=== PATIENT | male | born 1985 | race Two or more races ===

== ENCOUNTER 2022-02-17 19:43 | Emergency (ER) | payer OTHER, SELFPAY ==
[2022-02-17] VITALS (10 sets, daily range): BP systolic 101–151; BP diastolic 72–126; PULSE 102–136; RESP 10–26; TEMP 35.9–36.9; O2SAT 96–100; BMI 31.6
--- NOTE | 2022-02-17 20:02 | ED.URI ---
HPI - URI/Sore Throat General Chief Complaint: General Medical <CARRIE Cardoza - Last Filed: 02/17/22 20:04> Stated Complaint: Just had tonsils removed/ pain/bleeding <CARRIE Cardoza - Last Filed: 02/17/22 20:04> Time Seen by Provider: 02/17/22 20:28 <CARRIE Cardoza - Last Filed: 02/17/22 20:04> Source: patient <Jake Ocampo MD - Last Filed: 02/18/22 00:23> Limitations: no limitations <Jake Ocampo MD - Last Filed: 02/18/22 00:23> History of Present Illness HPI Narrative: This is a 36-year-old male who had a tonsillectomy done at [facility] [place] 5 days ago. The patient had been doing well, eating only soft foods, but this afternoon around 03:00 o'clock began bleeding from his throat. He has been repeatedly bringing up blood. He denies any dizziness. He does feel like his heart is racing. He denies any fever, shortness of breath, cough, abdominal pain, nausea vomiting. <Jake Ocampo MD - Last Filed: 02/18/22 00:23> Related Data Allergies/Adverse Reactions: Allergies Allergy/AdvReac Type Severity Reaction Status Date / Time No Known Allergies Allergy Verified 02/17/22 20:02 <CARRIE Cardoza - Last Filed: 02/17/22 20:04> Review of Systems Review of Systems: As per HPI <Jake Ocampo MD - Last Filed: 02/18/22 00:23> FOR[facility]LY [facility] Social History Social History: Social History Advance Directives: No Advance Directives Information Provided: No <CARRIE Cardoza - Last Filed: 02/17/22 20:04> Physical Exam Vital Signs: Vital Signs: Last Vital Signs Temp 97.0 F 02/17/22 23:04 Pulse 104 H 02/17/22 23:04 Resp 15 02/17/22 23:04 BP 143/126 H 02/17/22 23:04 Pulse Ox 100 02/17/22 22:30 O2 Del Method 02/17/22 22:30 BMI result Body Mass Index 31.6 <CARRIE Cardoza - Last Filed: 02/17/22 20:04> Vital Signs: Last Vital Signs Temp 97.0 F 02/17/22 23:04 Pulse 104 H 02/17/22 23:04 Resp 15 02/17/22 23:04 BP 143/126 H 02/17/22 23:04 Pulse Ox 100 02/17/22 22:30 O2 Del Method 02/17/22 22:30 BMI result Body Mass Index 31.6 <Jake Ocampo MD - Last Filed: 02/18/22 00:23> Const: Other: PERRLA Conj [place] Mucous membranes moist Throat bleeding from pharynx on both sides, not brisk. Patient bringing up small amounts of bright red blood. Neck supple Lungs CTA Heart tachy RR no murmurs rubs or gallops Abd soft, non tender, non distended Extremities no pitting edema Neuro alert and oriented x 3, non focal Skin moderately pale, moist <Jake Ocampo MD - Last Filed: 02/18/22 00:23> Course Course Course Narrative: RME-20PM - 36yoM who is s/p tonsillectomy on Saturday presenting to the ER with complaints of a few hours of bleeding from the surgical site including clots. Therefore he came here for further evaluation treatment. He denies any other symptoms related to this. Plan: Will obtain basic labs. Patient will be evaluated in the ED. <CARRIE Cardoza - Last Filed: 02/17/22 20:04> Medications Administered Discontinued Medications Generic Name Dose Route Start Last Admin Trade Name Freq PRN Reason Stop Dose Admin Epinephrine 0.5 ml 02/17/22 20:40 02/17/22 22:03 Racepinephrine Hcl 0.5 Ml Vial.Neb INHALE 02/17/22 20:41 0.5 ml ONCE ONE Administration Sodium Chloride 1,000 mls @ 999 mls/hr 02/17/22 20:45 02/17/22 20:41 Ns IV 02/17/22 21:45 999 mls/hr .Q1H1M CARIN Administration Lorazepam 0.5 mg 02/17/22 23:03 02/17/22 23:20 Lorazepam 2 Mg/Ml Vial IVPUSH 02/17/22 23:04 0.5 mg ONCE ONE Administration Ondansetron HCl 4 mg 02/17/22 23:03 12/17/22 23:21 Ondansetron Hcl 4 Mg/2 Ml Vial IVPUSH 02/17/22 23:04 4 mg ONCE ONE Administration Tranexamic Acid 500 mg 02/17/22 20:36 02/17/22 21:36 Tranexamic Acid 1,000 Mg/10 Ml Vial INTRANASAL 02/17/22 20:37 500 mg ONCE ONE Administration <CARRIE Cardoza - Last Filed: 02/17/22 20:04> Medications Administered Discontinued Medications Generic Name Dose Route Start Last Admin Trade Name Pamela PRN Reason Stop Dose Admin Epinephrine 0.5 ml 02/17/22 20:40 02/17/22 22:03 Racepinephrine Hcl 0.5 Ml Vial.Neb INHALE 02/17/22 20:41 0.5 ml ONCE ONE Administration Sodium Chloride 1,000 mls @ 999 mls/hr 02/17/22 20:45 02/17/22 20:41 Ns IV 02/17/22 21:45 999 mls/hr .Q1H1M CARIN Administration Lorazepam 0.5 mg 02/17/22 23:03 02/17/22 23:20 Lorazepam 2 Mg/Ml Vial IVPUSH 02/17/22 23:04 0.5 mg ONCE ONE Administration Ondansetron HCl 4 mg 02/17/22 23:03 02/17/22 23:21 Ondansetron Hcl 4 Mg/2 Ml Vial IVPUSH 02/17/22 23:04 4 mg ONCE ONE Administration Tranexamic Acid 500 mg 02/17/22 20:36 02/17/22 21:36 Tranexamic Acid 1,000 Mg/10 Ml Vial INTRANASAL 02/17/22 20:37 500 mg ONCE ONE Administration <Jake Ocampo MD - Last Filed: 02/18/22 00:23> Medical Decision Making Medical Decision Making MDM Narrative: Patient with tonsillar bleeding 5 days status post tonsillectomy, moderately severe, with patient showing signs of early hemorrhagic shock. <Jake Ocampo MD - Last Filed: 02/18/22 00:23> Consult Healthcare Provider Initially called [facility] but they stated that they were closed and to try the hospital where the patient had the procedure. Ear Nose and Throat resident at [facility] was initially telephone, stated that the patient needed to be transferred to the nearest hospital with ENT. Dr. Redding, ENT at [facility], accepted the patient for transfer directly to the emergency department. The patient was initially bolused normal saline IV. He was started on TXA nebulizer 500 mg in 5 mL of normal saline. He was given racemic epi nebulizer. His bleeding did not seem to slow down. The patient repetitively brought up blood which he spat into vomit bag. He remained tachycardic at around 130. Was pale mildly diaphoretic. After a few hours a repeat H&H was ordered. The patient also wanted to use the bathroom and in some fashion was brought to the bathroom and had a syncopal episode. The patient was placed in a wheelchair where he proceeded to projectile vomit a large amount of red blood. Patient was placed back on a gurney and laid flat. He did come to. Blood transfusion was started, as his H&H has dropped about 25%. Patient was given Zofran 4 mg IV and lorazepam 0.5 mg IV. Transported initially been requested a LS, however the ALS crew which had been available needed to transport the severe trauma patient to [facility]. A BLS crew was available and was called in to transport this patient with the nurse assisting in the rig. Patient was transferred with blood hanging. Critical care time for this life-threatening illness exclusive of all other billable procedures was approximately 45 minutes including initial evaluation of the patient, ordering tests, x-ray interpretation, EKG interpretation, medical consultation, documentation, reevaluation. <Jake Ocampo MD - Last Filed: 02/18/22 00:23> Lab Data MDM Lab Attestation statement: I reviewed the patient's lab results. <Jake Ocampo MD - Last Filed: 02/18/22 00:23> Result Diagrams: : 02/17/22 22:32 02/17/22 20:13 <CARRIE Cardoza - Last Filed: 02/17/22 20:04> Labs: Lab Results 02/17/22 02/17/22 02/17/22 Range/Units 20:13 20:13 20:13 WBC 8.5 (4.8-10.8) X10*3/uL RBC 4.80 (4.60-5.80) X10*6/uL Hgb 13.8 L (14.0-18.0) g/dl Hct 41.6 L (42.0-52.0) % MCV 86.7 (80.0-98.0) fL MCH 28.8 (27.0-33.0) pg MCHC 33.2 (31.0-36.0) g/dl RDW 13.4 (11.0-16.0) % Plt Count 313 (160-400) X10*3/uL MPV 10.0 (9.4-12.4) fL Immature Gran % (Auto) 0.2 (0.0-0.4) % Neut % (Auto) 57.8 (45-73) % Lymph % (Auto) 32.5 (20-40) % Randolph % (Auto) 6.5 (2-11) % Eos % (Auto) 2.6 (0-4) % Baso % (Auto) 0.4 (0-2) % Lymph # (Auto) 2.8 (1.2-4.9) X10*3/uL Randolph # (Auto) 0.6 (0.1-1.2) X10*3/uL Eos # (Auto) 0.2 (0.0-0.4) X10*3/uL Baso # (Auto) 0.0 (0.0-0.2) X10*3/uL Abs Immat Gran (auto) 0.02 (0.00-0.03) X10*3/uL Absolute Neuts (auto) 4.9 (2.0-8.3) x10*3/uL Absolute Nucleated RBC 0.000 (0.0-0.012) X10*3/uL Nucleated RBC % (auto) 0.0 (0.0-0.2) /100WBC PT 12.2 (10.0-13.1) SEC INR 1.1 (0.9-1.1) Sodium 137 (135-145) mmol/L Potassium 3.9 (3.3-5.1) mmol/L Chloride 101 (96-108) mmol/L Carbon Dioxide 28 (22-29) mmol/L Anion Gap 12 (12-20) BUN 12 (9-16) mg/dL Creatinine 0.82 (0.5-1.4) mg/dL Estim Creat Clear Calc 145.8 Estimated GFR > 60 Random Glucose 156 H (60-115) mg/dL Calcium 9.0 (8.4-10.2) mg/dL Magnesium 2.1 (1.6-2.6) mg/dL Total Bilirubin 1.1 H (0.0-1.0) mg/dL AST 26 (5-37) U/L ALT 35 (0-40) U/L Alkaline Phosphatase 108 (39-117) U/L Total Protein 7.2 (6.5-8.0) g/dL Albumin 4.2 (3.5-5.0) g/dL Influenza Type A (PCR) (Negative) Influenza Type B (PCR) (Negative) RSV RNA Qual (PCR) (Negative) SARS-CoV-2 RNA (RT-PCR) (Negative) Blood Type Antibody Screen Crossmatch 02/17/22 02/17/22 02/17/22 Range/Units 20:23 20:23 22:32 WBC (4.8-10.8) X10*3/uL RBC (4.60-5.80) X10*6/uL Hgb 11.4 L (14.0-18.0) g/dl Hct 34.1 L (42.0-52.0) % MCV (80.0-98.0) fL MCH (27.0-33.0) pg MCHC (31.0-36.0) g/dl RDW (11.0-16.0) % Plt Count (160-400) X10*3/uL MPV (9.4-12.4) fL Immature Gran % (Auto) (0.0-0.4) % Neut % (Auto) (45-73) % Lymph % (Auto) (20-40) % Randolph % (Auto) (2-11) % Eos % (Auto) (0-4) % Baso % (Auto) (0-2) % Lymph # (Auto) (1.2-4.9) X10*3/uL Randolph # (Auto) (0.1-1.2) X10*3/uL Eos # (Auto) (0.0-0.4) X10*3/uL Baso # (Auto) (0.0-0.2) X10*3/uL Abs Immat Gran (auto) (0.00-0.03) X10*3/uL Absolute Neuts (auto) (2.0-8.3) x10*3/uL Absolute Nucleated RBC (0.0-0.012) X10*3/uL Nucleated RBC % (auto) (0.0-0.2) /100WBC PT (10.0-13.1) SEC INR (0.9-1.1) Sodium (135-145) mmol/L Potassium (3.3-5.1) mmol/L Chloride (96-108) mmol/L Carbon Dioxide (22-29) mmol/L Anion Gap (12-20) BUN (9-16) mg/dL Creatinine (0.5-1.4) mg/dL Estim Creat Clear Calc Estimated GFR Random Glucose (60-115) mg/dL Calcium (8.4-10.2) mg/dL Magnesium (1.6-2.6) mg/dL Total Bilirubin (0.0-1.0) mg/dL AST (5-37) U/L ALT (0-40) U/L Alkaline Phosphatase (39-117) U/L Total Protein (6.5-8.0) g/dL Albumin (3.5-5.0) g/dL Influenza Type A (PCR) NEGATIVE (Negative) Influenza Type B (PCR) NEGATIVE (Negative) RSV RNA Qual (PCR) NEGATIVE (Negative) SARS-CoV-2 RNA (RT-PCR) NEGATIVE (Negative) Blood Type O Positive Antibody Screen NEGATIVE Crossmatch See Detail <CARRIE Cardoza - Last Filed: 02/17/22 20:04> Lab Results 02/17/22 02/17/22 02/17/22 Range/Units 20:13 20:13 20:13 WBC 8.5 (4.8-10.8) X10*3/uL RBC 4.80 (4.60-5.80) X10*6/uL Hgb 13.8 L (14.0-18.0) g/dl Hct 41.6 L (42.0-52.0) % MCV 86.7 (80.0-98.0) fL MCH 28.8 (27.0-33.0) pg MCHC 33.2 (31.0-36.0) g/dl RDW 13.4 (11.0-16.0) % Plt Count 313 (160-400) X10*3/uL MPV 10.0 (9.4-12.4) fL Immature Gran % (Auto) 0.2 (0.0-0.4) % Neut % (Auto) 57.8 (45-73) % Lymph % (Auto) 32.5 (20-40) % Randolph % (Auto) 6.5 (2-11) % Eos % (Auto) 2.6 (0-4) % Baso % (Auto) 0.4 (0-2) % Lymph # (Auto) 2.8 (1.2-4.9) X10*3/uL Randolph # (Auto) 0.6 (0.1-1.2) X10*3/uL Eos # (Auto) 0.2 (0.0-0.4) X10*3/uL Baso # (Auto) 0.0 (0.0-0.2) X10*3/uL Abs Immat Gran (auto) 0.02 (0.00-0.03) X10*3/uL Absolute Neuts (auto) 4.9 (2.0-8.3) x10*3/uL Absolute Nucleated RBC 0.000 (0.0-0.012) X10*3/uL Nucleated RBC % (auto) 0.0 (0.0-0.2) /100WBC PT 12.2 (10.0-13.1) SEC INR 1.1 (0.9-1.1) Sodium 137 (135-145) mmol/L Potassium 3.9 (3.3-5.1) mmol/L Chloride 101 (96-108) mmol/L Carbon Dioxide 28 (22-29) mmol/L Anion Gap 12 (12-20) BUN 12 (9-16) mg/dL Creatinine 0.82 (0.5-1.4) mg/dL Estim Creat Clear Calc 145.8 Estimated GFR > 60 Random Glucose 156 H (60-115) mg/dL Calcium 9.0 (8.4-10.2) mg/dL Magnesium 2.1 (1.6-2.6) mg/dL Total Bilirubin 1.1 H (0.0-1.0) mg/dL AST 26 (5-37) U/L ALT 35 (0-40) U/L Alkaline Phosphatase 108 (39-117) U/L Total Protein 7.2 (6.5-8.0) g/dL Albumin 4.2 (3.5-5.0) g/dL Influenza Type A (PCR) (Negative) Influenza Type B (PCR) (Negative) RSV RNA Qual (PCR) (Negative) SARS-CoV-2 RNA (RT-PCR) (Negative) Blood Type Antibody Screen Crossmatch 02/17/22 02/17/22 02/17/22 Range/Units 20:23 20:23 22:32 WBC (4.8-10.8) X10*3/uL RBC (4.60-5.80) X10*6/uL Hgb 11.4 L (14.0-18.0) g/dl Hct 34.1 L (42.0-52.0) % MCV (80.0-98.0) fL MCH (27.0-33.0) pg MCHC (31.0-36.0) g/dl RDW (11.0-16.0) % Plt Count (160-400) X10*3/uL MPV (9.4-12.4) fL Immature Gran % (Auto) (0.0-0.4) % Neut % (Auto) (45-73) % Lymph % (Auto) (20-40) % Randolph % (Auto) (2-11) % Eos % (Auto) (0-4) % Baso % (Auto) (0-2) % Lymph # (Auto) (1.2-4.9) X10*3/uL Randolph # (Auto) (0.1-1.2) X10*3/uL Eos # (Auto) (0.0-0.4) X10*3/uL Baso # (Auto) (0.0-0.2) X10*3/uL Abs Immat Gran (auto) (0.00-0.03) X10*3/uL Absolute Neuts (auto) (2.0-8.3) x10*3/uL Absolute Nucleated RBC (0.0-0.012) X10*3/uL Nucleated RBC % (auto) (0.0-0.2) /100WBC PT (10.0-13.1) SEC INR (0.9-1.1) Sodium (135-145) mmol/L Potassium (3.3-5.1) mmol/L Chloride (96-108) mmol/L Carbon Dioxide (22-29) mmol/L Anion Gap (12-20) BUN (9-16) mg/dL Creatinine (0.5-1.4) mg/dL Estim Creat Clear Calc Estimated GFR Random Glucose (60-115) mg/dL Calcium (8.4-10.2) mg/dL Magnesium (1.6-2.6) mg/dL Total Bilirubin (0.0-1.0) mg/dL AST (5-37) U/L ALT (0-40) U/L Alkaline Phosphatase (39-117) U/L Total Protein (6.5-8.0) g/dL Albumin (3.5-5.0) g/dL Influenza Type A (PCR) NEGATIVE (Negative) Influenza Type B (PCR) NEGATIVE (Negative) RSV RNA Qual (PCR) NEGATIVE (Negative) SARS-CoV-2 RNA (RT-PCR) NEGATIVE (Negative) Blood Type O Positive Antibody Screen NEGATIVE Crossmatch See Detail <Jake Ocampo MD - Last Filed: 02/18/22 00:23> Independent Interpretation I performed an independent interpretation of an: EKG <Jake Ocampo MD - Last Filed: 02/18/22 00:23> Interpretation: Sinus tachycardia with a rate of 129. No ST elevation or depression. <Jake Ocampo MD - Last Filed: 02/18/22 00:23> Discharge Plan Discharge Clinical Impression: Hemorrhage following tonsillectomy, Hemorrhagic shock, Syncope <CARRIE Cardoza - Last Filed: 02/17/22 20:04> Patient Disposition: [facility] <CARRIE Cardoza - Last Filed: 02/17/22 20:04> Transfer Details: [facility] ER for ENT evaluation/OR <CARRIE Cardoza - Last Filed: 02/17/22 20:04> [facility] ER for ENT evaluation/OR <Jake Ocampo MD - Last Filed: 02/18/22 00:23>
--- NOTE | 2022-02-17 20:08 | ECG_ITS ---
Test Reason : BLEEDING Blood Pressure : / mmHG Vent. Rate : 129 BPM Atrial Rate : 129 BPM P-R Int : 124 ms QRS Dur : 090 ms QT Int : 314 ms P-R-T Axes : 049 006 030 degrees QTc Int : 460 ms Sinus tachycardia Possible Left atrial enlargement Borderline ECG No previous ECGs available Referred By: Mi Garcia Electronically Signed By:JAMES TOUSSAINT
[2022-02-17 20:17] LABS: MANUAL DIFF FLAG NO
[2022-02-17 20:29] LABS: Basophils Percent Auto 0.4 % (0-2); Eosinophils Absolute Auto 0.2 X10*3/uL (0.0-0.4); Eosinophils Percent Auto 2.6 % (0-4); Hematocrit 41.6 % (42.0-52.0); Hemoglobin 13.8 g/dl (14.0-18.0); INTERNATIONAL NORM RATIO 1.1 (0.9-1.1); Imm Gran Abs Auto 0.02 X10*3/uL (0.00-0.03); Imm Gran Pct Auto 0.2 % (0.0-0.4); Lymphocytes Absolute Auto 2.8 X10*3/uL (1.2-4.9); Lymphocytes Percent Auto 32.5 % (20-40); Mean Corpuscular HGB Conc 33.2 g/dl (31.0-36.0); Mean Corpuscular Hemoglobin 28.8 pg (27.0-33.0); Mean Corpuscular Volume 86.7 fL (80.0-98.0); Monocytes Absolute Auto 0.6 X10*3/uL (0.1-1.2); Monocytes Percent Auto 6.5 % (2-11); Neutrophils Absolute Auto 4.9 x10*3/uL (2.0-8.3); Neutrophils Percent Auto 57.8 % (45-73); Platelet Count 313 X10*3/uL (160-400); Prothrombin Time 12.2 SEC (10.0-13.1); Red Cell Distribution Width 13.4 % (11.0-16.0); White Blood Count 8.5 X10*3/uL (4.8-10.8)
[2022-02-17] MEDS: 0.9 % Sodium Chloride 1,000 ML 999 ML IV (20:41)
--- NOTE | 2022-02-17 20:43 | MHC.EDTECH ---
CALL PLACED TO [facility] PT TX LINE @ REQUEST OF DR ANTONIO ALVAREZ SPEAKS WITH PT TX LINE @ THIS TIME
[2022-02-17 20:51] LABS: Alanine Aminotransferase 35 U/L (0-40); Albumin Level 4.2 g/dL (3.5-5.0); Alkaline Phosphatase 108 U/L (39-117); Anion Gap 12 (12-20); Aspartate Amino Transferase 26 U/L (5-37); Bilirubin Total 1.1 mg/dL (0.0-1.0); Blood Urea Nitrogen 12 mg/dL (9-16); Carbon Dioxide 28 mmol/L (22-29); Chloride 101 mmol/L (96-108); Creatinine Clr Calc Pharmacy 145.8; Estimated Glomerular Filt Rate > 60; Glucose Random 156 mg/dL (60-115); Magnesium 2.1 mg/dL (1.6-2.6); Potassium 3.9 mmol/L (3.3-5.1); Sodium 137 mmol/L (135-145); Total Protein 7.2 g/dL (6.5-8.0)
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
--- NOTE | 2022-02-17 20:55 | MHC.EDTECH ---
@2051 CALL PLACED TO [facility] @ DR ALVAREZ REQUEST GARCIA ANSWERS, TAKES PT INFO THEN ASKS TO SPEAK WITH DR ANTONIO ALVAREZ TAKES OVER CALL RIGHT AWAY
[2022-02-17 21:27] LABS: Influenza A PCR NEGATIVE (Negative); Influenza B PCR NEGATIVE (Negative); Resp Syncy Virus RNA Qual PCR NEGATIVE (Negative); SARS COV2 PCR INHOUSE NEGATIVE (Negative)
[2022-02-17] MEDS: Tranexamic Acid 1,000 MG/10 ML VIAL 500 MG INTRANASAL (21:36)
[2022-02-17] MEDS: Racepinephrine HCL 0.5 ML VIAL.NEB INHALE (22:03)
--- NOTE | 2022-02-17 22:32 | MHC.EDTECH ---
@8131 [facility] CALLED FOR ETA OF ALS TRANSPORT FOR THIS PT. TIME UNABLE TO BE GIVEN, NEXT AVAILABLE TRUCK TO COME BACK FROM [facility] FROM ONE OF OUR PREVIOUS ALS TRANSPORTS
[2022-02-17 22:37] LABS: Hematocrit 34.1 % (42.0-52.0); Hemoglobin 11.4 g/dl (14.0-18.0)
[2022-02-17] MEDS: LORazepam 2 MG/ML VIAL 0.5 MG IVPUSH (23:20)
[2022-02-17] MEDS: ondansetron HCL 4 MG/2 ML VIAL IVPUSH (23:21)
--- NOTE | 2022-02-18 00:09 | PC.NURSE ---
pt transported to [facility] ED with this RN, vital signs stable throughout transport, 1st u PRBC transfusing en route. RN-RN report given at bedside.
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
== END 2022-02-18 00:15 | disposition short-term general hospital (02) ==
PROVIDERS: Physician Assistant Medical; Emergency Provider Emergency Medicine; PCP Nurse Practitioner Adult Health
DX: J95.830 Postprocedural hemorrhage of a respiratory system organ or structure following a respiratory system procedure (principal); Y83.8 Other surgical procedures as the cause of abnormal reaction of the patient, or of later complication, without mention of misadventure at the time of the procedure; Y92.019 Unspecified place in single-family (private) house as the place of occurrence of the external cause; Z20.822 Contact with and (suspected) exposure to COVID-19
CPT/HCPCS: 0241U; 36415; 36430; 80053; 83735; 85014; 85018; 85025; 85610; 86850; 86900; 86901; 86923; 93005; 96374; 96375; 99284; 99285; J2060; J2405; P9016

== ENCOUNTER 2023-08-24 18:47 | Emergency (ER) | payer OTHER, SELFPAY ==
--- NOTE | ~2023-08-24 | CT_ITS ---
EXAMINATION: CT head/brain wo IV con CLINICAL INFORMATION: HTN, headache COMPARISON: None. TECHNIQUE: Contiguous axial imaging was performed from the skull base to vertex without intravenous contrast. This CT examination was performed using dose optimization techniques as appropriate, variously including the following: * Automated exposure control * Adjustment of mA and/or kV according to patient size (this includes techniques or standardized protocols for targeted exams where dose is matched to indication/reason for exam; i.e. extremities or head) * Use of iterative reconstruction technique DLP: 780 mGy-cm. FINDINGS: There is no evidence of acute intracranial hemorrhage or territorial infarction. Aguero to white matter differentiation is well preserved. No abnormal mass effect or midline shift is seen. No extra-axial fluid collections are identified. No hydrocephalus. No significant volume loss. There is no abnormal attenuation within the brain parenchyma. The cerebellar tonsils are well positioned. No acute osseous or soft tissue abnormality. Visualized portions of the orbits are unremarkable. The mastoid air cells and visualized portions of the paranasal sinuses are well aerated. CT/CT head/brain wo IV con IMPRESSION: No acute intracranial pathology.
[2023-08-24 18:59] VITALS: BP 175/107; PULSE 74; RESP 16; TEMP 37; O2SAT 98; BMI 29.5
--- NOTE | 2023-08-24 18:59 | ED_ITS ---
<Statement entered by Nahun Wesley MD - 08/25/23 00:09> The patient presents with hypertension and headache. The headache was not sudden onset headache. Does not describe anything that sounds like a thunderclap headache. He has a negative head CT. I do not think he requires additional evaluation for the headache. His headache was never very severe according to him. He looks well. His neck is entirely supple. I think this patient has some underlying hypertension. He describes a family history of hypertension. He will be started on valsartan and encouraged to try to find a primary care doctor. HPI - General Adult General Chief complaint: General Medical Stated complaint: high blood pressure Time Seen by Provider: 08/24/23 19:32 Source: patient and RN notes reviewed Mode of arrival: ambulatory Limitations: no limitations History of Present Illness ED Provider: Zayra Nice PA-C HPI narrative: This is a 38-year-old male, with no known medical problems, who presents emergency department with complaints of headache and lightheadedness x2 weeks. Patient states that he has noticed over the last 2 weeks he has had ongoing mild headaches. He states that he decided to take his blood pressure yesterday and noticed that it was elevated to the 200s over 100s; he states that he again took his blood pressure multiple times and it was 180/100, and he decided to come in. Patient states that he has had no blurred vision, chest pain, or shortness for breath. He states that approximately 10 years ago he was seen by his primary care physician who told him he had elevated blood pressure and recommended dietary and a fitness regimen, he was seen 1 month later and was not started on any medications. Patient reports family medical history of hypertension and cardiac history. He otherwise denies any documented fevers, chills, congestion, chest pain, shortness breath, palpitations, abdominal pain or vomiting. He does endorse nausea as well as decreased appetite. No other complaints or concerns at this time. complaint: Headache, lightheadedness, elevated blood pressure Onset (ago): week(s) Location: head Radiation: non-radiation Severity: mild Quality: aching Pain Consistency: constant Relieving factors: none Exacerbating factors: none Associated symptoms: headaches, malaise and nausea/vomiting Treatments prior to arrival: none Related Data Previous Rx's ?Medication ?Instructions ?Recorded valsartan 80 mg tablet 80 mg PO DAILY #30 tabs 08/24/23 Allergies Allergy/AdvReac Type Severity Reaction Status Date / Time No Known Allergies Allergy Verified 08/24/23 19:01 Review of Systems 2 Review of Systems: Yes all other systems are reviewed and are negative Constitutional: Constitutional: Reports as per [facility] Social History Social History Alcohol intake: never Smoked in Last 30 Days: No Use of substances other than those prescribed or required for medical reasons: No Advance Directives: No Advance Directives Information Provided: No Do you have a plan to hurt others: No Plan Physical Exam ED Vital Signs: Vital Signs - 24 hr 08/24/23 18:59 08/24/23 20:40 08/24/23 23:17 Temperature 98.6 F 98.2 F 97.6 F Pulse Rate 74 63 67 Respiratory Rate 16 16 18 Blood Pressure 175/107 H 133/93 H 141/99 H Pulse Oximetry 98 97 97 Oxygen Delivery Method Room Air Room Air Room Air 08/24/23 23:33 Temperature 97.6 F Pulse Rate 67 Respiratory Rate 18 Blood Pressure 141/99 H Pulse Oximetry 97 Oxygen Delivery Method Room Air BMI result Body Mass Index 29.5 Const General: cooperative, comfortable and no acute distress Orientation/consciousness: patient oriented x3 Limitations: no limitations [facility] Head: Yes normal to inspection, Yes normocephalic and Yes atraumatic Ears: hearing grossly normal bilaterally General nose exam: Normal external nose present Face and sinus: Yes normal facial exam Mouth: Normal oral and palatal mucosa present, oropharynx normal and moist mucous membranes Throat: Yes posterior oropharynx normal Eyes General: appearance normal, both eyes and all related structures Eyelids: Yes eyelids normal Conjunctivae: conjunctivae normal Sclerae: sclerae normal Pupils: Equal, round and reactive pupils present EOM: EOMs intact bilaterally Neck Neck: Yes normal visual inspection, Yes full ROM and Yes no lymphadenopathy Lymphatic: no lymphadenopathy noted Chest Chest palpation & inspection: normal inspection of the chest Resp Effort & Inspection: normal respiratory effort and able to speak in complete sentences Auscultation: clear to auscultation bilaterally, no crackles, no rales, no rhonchi and no wheezes Cardio Rate: regular rate Rhythm: regular rhythm Heart sounds: S1 normal heart sound present and S2 normal heart sound present GI Inspection: Yes normal to inspection Skin General skin exam: no rashes or lesions noted Trauma: no lacerations or abrasions Wounds: no wounds Neuro General: patient oriented x3 and moves all extremities Cranial nerves: Yes CN's II-XII intact bilaterally and Yes Equal, round and reactive pupils present Cognition (Neuro): normal cognition Gait exam (Neuro): Normal gait present Motor exam (neuro): 5/5 motor strength present throughout, Pronator motor function not present and no tremor noted Coordination: [id number] test normal and [id number] test normal Romberg Test: Negative Extrem General: Yes normal to inspection Right upper extremity: normal to inspection Left upper extremity: normal to inspection Right lower extremity: normal to inspection Left lower extremity: normal to inspection Course Course Course Narrative: This is a rapid medical exam performed by Davide Gaspar NP: Additional HPI, ROS, PE not included below will be deferred to primary provider. Patient is a 38- year old male presenting to the ED with complaint of high BP when checking at home, headache x 2 weeks, nausea, not currently on any BP medication. Rates headache at 5/10, took Tylenol last week, none this week. Drank passion fruit juice [employer] as his mother advised this would lower his BP. Plan: EKG, labs Reevaluation(s) Reevaluation #1: CT scan returns, no evidence of ICH, urine returns, no evidence of ketones or proteinuria. He does have slight elevation in alk-phos at 119 slight elevation in glucose at 120, chemistry as well as CBC nondiagnostic. I repeated blood pressure personally, blood pressure and left arm was 142/90, and right was 141/91. Patient still reports slight headache which has been constant for the last 2 weeks. Time: 22:21 Reevaluation #2: Patient was seen by Dr. Wesley, who recommended starting on valsartan 80 mg once a day. Advised to continue monitoring blood pressure. He understands and agrees with plan. Patient stable for discharge. Medical Decision Making Medical Decision Making [facility] Narrative: This is a 38-year-old male, with no known medical problems, who presents emergency department with complaints of mild headache, lightheadedness x 2 weeks. On arrival, patient hypertensive at 175/107. All other vital signs within normal limits. Patient was evaluated by me at approximately 7:45 p.m.. He is alert and oriented x4. No neurologic deficits on examination, no focal deficits. He has a remote history of hypertension approximately 10 years ago however states that this was not addressed at his primary care physician as he only advised lifestyle habits. He took his blood pressure multiple times and it has been 200/100s, 180s/110s at home. Differential diagnoses include hypertensive urgency, emergency, ICH-unlikely, BETTY. Plan: Labs, UA, CT head, EKG Differential Diagnosis Differential Diagnoses: The differential diagnosis associated with the presentation includes See above Admission/Observation Consideration of admission/observation: Escalation of care including admission/observation considered Escalation of care including admission/observation considered however given workup today not warranted at this time. Lab Data MDM Lab Attestation statement: I reviewed the patient's lab results. 08/24/23 19:33 08/24/23 19:33 Labs: Lab Results 08/24/23 08/24/23 Range/Units 19:33 20:39 WBC 7.9 (4.8-10.8) X10*3/uL RBC 5.05 (4.60-5.80) X10*6/uL Hgb 15.3 D (14.0-18.0) g/dl Hct 43.3 D (42.0-52.0) % MCV 85.7 (80.0-98.0) fL MCH 30.3 (27.0-33.0) pg MCHC 35.3 (31.0-36.0) g/dl RDW 12.6 (11.0-16.0) % Plt Count 259 (160-400) X10*3/uL MPV 10.1 (9.4-12.4) fL Immature Gran % (Auto) 0.3 (0.0-0.4) % Neut % (Auto) 56.8 (45-73) % Lymph % (Auto) 30.4 (20-40) % [place] % (Auto) 8.0 (2-11) % Eos % (Auto) 3.7 (0-4) % Baso % (Auto) 0.8 (0-2) % Lymph # (Auto) 2.4 (1.2-4.9) X10*3/uL [place] # (Auto) 0.6 (0.1-1.2) X10*3/uL Eos # (Auto) 0.3 (0.0-0.4) X10*3/uL Baso # (Auto) 0.1 (0.0-0.2) X10*3/uL Abs Immat Gran (auto) 0.02 (0.00-0.03) X10*3/uL Absolute Neuts (auto) 4.5 (2.0-8.3) x10*3/uL Absolute Nucleated RBC 0.000 (0.0-0.012) X10*3/uL Nucleated RBC % (auto) 0.0 (0.0-0.2) /100WBC Sodium 140 (135-145) mmol/L Potassium 3.8 (3.3-5.1) mmol/L Chloride 104 (96-108) mmol/L Carbon Dioxide 26 (22-29) mmol/L Anion Gap 14 (12-20) BUN 13 (9-16) mg/dL Creatinine 0.83 (0.5-1.4) mg/dL Estim Creat Clear Calc 136.9 Estimated GFR > 60 Random Glucose 120 H (60-115) mg/dL Calcium 10.2 D (8.4-10.2) mg/dL Total Bilirubin 0.7 (0.0-1.0) mg/dL AST 22 (5-37) U/L ALT 30 (0-40) U/L Alkaline Phosphatase 119 H (39-117) U/L Total Protein 8.1 H (6.5-8.0) g/dL Albumin 4.7 (3.5-5.0) g/dL Urine Color Yellow Urine Appearance Clear Urine pH 5.5 (5.0-9.0) Ur Specific [place] 1.020 (1.005-1.025) Urine Protein Negative (Neg-Trace) mg/dL Urine Glucose (UA) Negative (Negative) mg/dL Urine Ketones Negative (Negative) mg/dL Urine Blood Negative (Negative) Urine Nitrite Negative (Negative) Ur Leukocyte Esterase Negative (Negative) Radiology Impression Discussion of test interpretation with radiology: I have reviewed the radiologist's reading. External Record Review External record reviewed: Inpatient record, Office record, Outpatient record, Prior outpatient labs, Prior outpatient radiology, Primary care record and Outside ED record Discharge Plan Discharge Clinical Impression: Hypertension Patient Disposition: Home, Self-Care Instructions: Hypertension (ED) Additional Instructions: We are starting you on a dose of high blood pressure medication. Please take as prescribed. You need to follow-up with the primary care physician regarding your hypertension. Drink plenty of fluids get plenty of rest. If any new or worsening symptoms occur including but not limited to severe headache, dizziness, blurred vision, please return for re-evaluation. Prescriptions: New valsartan 80 mg tablet 80 mg PO DAILY Qty: 30 0RF Referrals: Harjeet Nelson MD [Physician] - [place],[facility] [Physician] - Interventions: ED Discharge Assessment Last Done: 08/24/23 23:33 Discharge Date/Time: 08/24/23 23:52 Print Language: Faroese
--- NOTE | 2023-08-24 19:01 | ECG_ITS ---
Test Reason : HIGH BP Blood Pressure : / mmHG Vent. Rate : 068 BPM Atrial Rate : 068 BPM P-R Int : 124 ms QRS Dur : 100 ms QT Int : 374 ms P-R-T Axes : 026 -02 011 degrees QTc Int : 397 ms Normal sinus rhythm Minimal voltage criteria for LVH, may be normal variant ( R in aVL ) Borderline ECG When compared with ECG of 17-FEB-2022 20:27, Vent. rate has decreased BY [address] no longer depressed in Lateral leads Referred By: Ailyn Gaspar Electronically Signed By:ABRAHAM CINTRON MD
[2023-08-24 19:38] LABS: Basophils Absolute Auto 0.1 X10*3/uL (0.0-0.2); Basophils Percent Auto 0.8 % (0-2); Eosinophils Absolute Auto 0.3 X10*3/uL (0.0-0.4); Eosinophils Percent Auto 3.7 % (0-4); Hematocrit 43.3 % (42.0-52.0); Hemoglobin 15.3 g/dl (14.0-18.0); Imm Gran Abs Auto 0.02 X10*3/uL (0.00-0.03); Imm Gran Pct Auto 0.3 % (0.0-0.4); Lymphocytes Absolute Auto 2.4 X10*3/uL (1.2-4.9); Lymphocytes Percent Auto 30.4 % (20-40); MANUAL DIFF FLAG NO; Mean Corpuscular HGB Conc 35.3 g/dl (31.0-36.0); Mean Corpuscular Hemoglobin 30.3 pg (27.0-33.0); Mean Corpuscular Volume 85.7 fL (80.0-98.0); Mean Platelet Volume 10.1 fL (9.4-12.4); Monocytes Absolute Auto 0.6 X10*3/uL (0.1-1.2); Neutrophils Absolute Auto 4.5 x10*3/uL (2.0-8.3); Neutrophils Percent Auto 56.8 % (45-73); Platelet Count 259 X10*3/uL (160-400); Red Blood Count 5.05 X10*6/uL (4.60-5.80); Red Cell Distribution Width 12.6 % (11.0-16.0); White Blood Count 7.9 X10*3/uL (4.8-10.8)
[2023-08-24 20:01] LABS: Alanine Aminotransferase 30 U/L (0-40); Albumin Level 4.7 g/dL (3.5-5.0); Alkaline Phosphatase 119 U/L (39-117); Anion Gap 14 (12-20); Aspartate Amino Transferase 22 U/L (5-37); Bilirubin Total 0.7 mg/dL (0.0-1.0); Blood Urea Nitrogen 13 mg/dL (9-16); Calcium 10.2 mg/dL (8.4-10.2); Carbon Dioxide 26 mmol/L (22-29); Chloride 104 mmol/L (96-108); Creatinine Clr Calc Pharmacy 136.9; Estimated Glomerular Filt Rate > 60; Glucose Random 120 mg/dL (60-115); Potassium 3.8 mmol/L (3.3-5.1); Sodium 140 mmol/L (135-145); Total Protein 8.1 g/dL (6.5-8.0)
[2023-08-24 20:40] VITALS: BP 133/93; PULSE 63; RESP 16; TEMP 36.8; O2SAT 97
[2023-08-24 20:48] LABS: Appearance Urine Clear; Color Urine Yellow; Glucose Urine UA Negative (Negative); Leukocyte Esterase Urine Negative (Negative); Nitrite Urine Negative (Negative); PH 5.5 (5.0-9.0); Urine Blood Negative (Negative); Urine Ketones Negative (Negative); Urine Protein Negative (Neg-Trace)
[2023-08-24 23:17] VITALS: BP 141/99; PULSE 67; RESP 18; TEMP 36.4; O2SAT 97
[2023-08-24 23:33] VITALS: BP 141/99; PULSE 67; RESP 18; TEMP 36.4; O2SAT 97
== END 2023-08-24 23:52 | disposition home or self-care (01) ==
PROVIDERS: Physician Assistant Medical; Registered Nurse Emergency; Emergency Provider Emergency Medicine
DX: I10 Essential (primary) hypertension (principal); R51.9 Headache, unspecified
CPT/HCPCS: 36415; 70450; 80053; 81003; 85025; 93005; 99284

== ENCOUNTER → 2023-08-24 19:01 | Outpatient (BNV) | payer SELFPAY | PROVIDERS: Emergency Provider Emergency Medicine; Visit Provider Internal Medicine Cardiovascular Disease | DX: I10 Essential (primary) hypertension (principal); R51.9 Headache, unspecified | CPT/HCPCS: 93010 ==

== ENCOUNTER 2023-08-28 14:39 | Outpatient (AMB) | payer OTHER, SELFPAY ==
--- NOTE | 2023-08-28 14:41 | HO.NEPHOV ---
Vital Signs 08/28/23 14:42 Weight 227 lb 4 oz BP 144/90 H Blood Pressure Location Rt brachial Position Sitting Pulse 90 Pulse Source Pulse Oximeter Pulse Oximetry (%) 98 Oxygen Delivery Method Room Air Intake Visit Reasons: HTN/ Pt seen in [facility] ED on 08.24.23 Security Messenger Required: No Accompanied by: Self / Same As Patient Allergies No Known Allergies Allergy (Verified 10/09/23 14:04) HPI Comments Details: I had the pleasure of seeing Balaji in consultation for hypertension. He is 38 years of age and was found to be hypertensive and was initiated on medications. He has no history of any coronary artery disease, congestive heart failure, CVA, carotid stenosis, peripheral arterial disease. He has no history of smoking or dyslipidemia. He denies thyroid dysfunction, palpitation, chest pain, orthostatic symptoms, diarrhea, syncope, headache, visual disturbances. He has no history of any drug use. He has gained some weight. He does not take any excessive nonsteroidal anti-inflammatories. There were no specific systemic complaints at the time of this office visit. [facility] Surgical History History of surgery on arm History of tonsillectomy History of cholecystectomy Family History Father Hypertension Maternal Grandmother Hypertension Social History Alcohol intake: never Patient Tobacco Use Status: Never used Tobacco Review of Systems Const All systems reviewed & are unremarkable except as noted in HPI and below Physical Exam Vital Signs: Last Vital Signs Pulse 90 08/28/23 14:42 BP 144/90 H 08/28/23 14:42 Pulse Ox 98 08/28/23 14:42 Oxygen Delivery Method Room Air 08/28/23 14:42 Const General: comfortable and no acute distress Orientation/consciousness: patient oriented x3 HEENT Head: Yes normocephalic Mouth: Normal oral and palatal mucosa present Eyes EOM: EOMs intact bilaterally Neck Neck: Yes supple Resp Auscultation: clear to auscultation bilaterally Cardio Jugular venous distension: no JVD Rate: regular rate GI Palpation (GI): Soft to palpation Auscultation: normal bowel sounds General: Yes no CVA tenderness Back/Spine/Pelvis Back: no CVA tenderness Skin General skin exam: no rashes or lesions noted Neuro General: patient oriented x3 and moves all extremities Extrem General: Yes no pedal edema Results Reviewed Nephrology Results: Hgb 14.7 g/dl (14.0-18.0) 10/01/23 WBC 6.0 X10*3/uL (4.8-10.8) 10/01/23 Plt Count 242 X10*3/uL (160-400) 10/01/23 Sodium 140 mmol/L (135-145) 10/01/23 Potassium 3.9 mmol/L (3.3-5.1) 10/01/23 Chloride 105 mmol/L (96-108) 10/01/23 Carbon Dioxide 28 mmol/L (22-29) 10/01/23 BUN 14 mg/dL (9-16) 10/01/23 Creatinine 0.90 mg/dL (0.5-1.4) 10/01/23 Calcium 9.9 mg/dL (8.4-10.2) 10/01/23 Urine Protein Negative mg/dL (Neg-Trace) 08/24/23 Renal US 09/18/23 Assessment & Plan Assessment & Plan (1) Hypertension: Code(s): I10 - Essential (primary) hypertension Category: Medical Qualifiers: Hypertension type: unspecified Qualified Code(s): I10 - Essential (primary) hypertension Plan Balaji has hypertension. Secondary etiology for hypertension needs to be ruled out. I have ordered ultrasound of the kidney, Doppler of renal arteries, renin, aldosterone, thyroid functions, cortisol and plasma metanephrines. He needs to be on a low-sodium diet and needs to lose weight. He has no symptoms suggestive of obstructive sleep apnea. He has no history of drug use and does not take excessive nonsteroidal anti-inflammatories. He was encouraged to maintain good hydration. All these have been explained in detail. Answered all questions. Further management is pending evolving data. Follow-up appointment given. Orders: Orders Metanephrines, Plasma 08/28/23 I10 - Essential (primary) hypertension Aldost/Renin 08/28/23 I10 - Essential (primary) hypertension US renal doppler 08/28/23 I10 - Essential (primary) hypertension Cortisol Random 08/28/23 I10 - Essential (primary) hypertension TSH reflex Free T4 08/28/23 I10 - Essential (primary) hypertension Renin 08/28/23 I10 - Essential (primary) hypertension Aldosterone 08/28/23 I10 - Essential (primary) hypertension US renal BI 08/28/23 I10 - Essential (primary) hypertension Coding Level of Care Code New Pt Level 4 (85121) Diagnoses Hypertension I10 Hypertension type: unspecified
[2023-08-28 14:42] VITALS: BP 144/90; PULSE 90; O2SAT 98
== END 2023-08-28 15:03 | disposition home or self-care (01) ==
PROVIDERS: Visit Provider Internal Medicine Nephrology
DX: I10 Essential (primary) hypertension (principal)
CPT/HCPCS: 99204

== ENCOUNTER → 2023-08-28 14:39 | Outpatient (BNVA) | payer OTHER, SELFPAY | PROVIDERS: Visit Provider Internal Medicine Nephrology | DX: I10 Essential (primary) hypertension (principal) | CPT/HCPCS: 99202 ==

== ENCOUNTER 2023-09-18 08:32 | Outpatient (REF) | payer OTHER, SELFPAY ==
--- NOTE | ~2023-09-18 | US_ITS ---
EXAMINATION: RENAL ARTERY DOPPLER ULTRASOUND CLINICAL INFORMATION: Essential hypertension COMPARISON: none TECHNIQUE: Renal ultrasound. Doppler ultrasound (spectral analysis and color Doppler) of the renal arteries and aorta were performed. FINDINGS: The right kidney measures 12.3 x 5.3 x 6.1 cm in sagittal, AP and transverse dimensions. The left kidney measures 13.4 x 5.8 x 5.7 cm in sagittal, AP and transverse dimensions. The kidneys show no masses, calculi or hydronephrosis. The corticomedullary differentiation is normal. RENAL ARTERY VELOCITIES: Right: Proximally: 84 cm/s. Mid: 183 cm/s. Distal: 109 cm/s. Left: Proximally: 159 cm/s. Mid: 130 cm/s. Distally: 89 cm/s. INTERLOBAR RESISTIVE INDICES: Right: Upper: 0.66 Mid: 0.59 Lower: 0.55 Left: Upper: 0.63 Mid: 0.63 Lower: 0.5 Mid aortic velocity: 120 cm/s. US/US renal doppler IMPRESSION: 1. The kidneys are normal in appearance. 2. Findings consistent with less than 60% stenosis of the mid right renal artery.
--- NOTE | ~2023-09-18 | US_ITS ---
EXAMINATION: RENAL ARTERY DOPPLER ULTRASOUND CLINICAL INFORMATION: Essential hypertension COMPARISON: none TECHNIQUE: Renal ultrasound. Doppler ultrasound (spectral analysis and color Doppler) of the renal arteries and aorta were performed. FINDINGS: The right kidney measures 12.3 x 5.3 x 6.1 cm in sagittal, AP and transverse dimensions. The left kidney measures 13.4 x 5.8 x 5.7 cm in sagittal, AP and transverse dimensions. The kidneys show no masses, calculi or hydronephrosis. The corticomedullary differentiation is normal. RENAL ARTERY VELOCITIES: Right: Proximally: 84 cm/s. Mid: 183 cm/s. Distal: 109 cm/s. Left: Proximally: 159 cm/s. Mid: 130 cm/s. Distally: 89 cm/s. INTERLOBAR RESISTIVE INDICES: Right: Upper: 0.66 Mid: 0.59 Lower: 0.55 Left: Upper: 0.63 Mid: 0.63 Lower: 0.5 Mid aortic velocity: 120 cm/s. US/US renal BI IMPRESSION: 1. The kidneys are normal in appearance. 2. Findings consistent with less than 60% stenosis of the mid right renal artery.
== END 2023-09-18 08:33 | disposition home or self-care (01) ==
LOC: HO.HMGCX 08:32
PROVIDERS: PCP Internal Medicine; Visit Provider Internal Medicine Nephrology
DX: I10 Essential (primary) hypertension (principal)
CPT/HCPCS: 76775; 93975

== ENCOUNTER 2023-10-01 09:58 | Outpatient (REF) | payer OTHER, SELFPAY ==
[2023-10-01 10:14] LABS: MANUAL DIFF FLAG NO
[2023-10-01 10:47] LABS: Basophils Absolute Auto 0.1 X10*3/uL (0.0-0.2); Eosinophils Absolute Auto 0.2 X10*3/uL (0.0-0.4); Eosinophils Percent Auto 3.3 % (0-4); Hemoglobin 14.7 g/dl (14.0-18.0); Imm Gran Abs Auto 0.02 X10*3/uL (0.00-0.03); Imm Gran Pct Auto 0.3 % (0.0-0.4); Lymphocytes Absolute Auto 1.8 X10*3/uL (1.2-4.9); Lymphocytes Percent Auto 29.3 % (20-40); Mean Corpuscular HGB Conc 33.4 g/dl (31.0-36.0); Mean Corpuscular Hemoglobin 29.5 pg (27.0-33.0); Mean Corpuscular Volume 88.2 fL (80.0-98.0); Mean Platelet Volume 10.7 fL (9.4-12.4); Monocytes Absolute Auto 0.5 X10*3/uL (0.1-1.2); Monocytes Percent Auto 7.6 % (2-11); Neutrophils Absolute Auto 3.5 x10*3/uL (2.0-8.3); Neutrophils Percent Auto 58.5 % (45-73); Platelet Count 242 X10*3/uL (160-400); Red Blood Count 4.99 X10*6/uL (4.60-5.80)
[2023-10-01 11:26] LABS: Alanine Aminotransferase 28 U/L (0-40); Albumin Level 4.6 g/dL (3.5-5.0); Alkaline Phosphatase 96 U/L (39-117); Anion Gap 11 (12-20); Aspartate Amino Transferase 21 U/L (5-37); Bilirubin Total 0.8 mg/dL (0.0-1.0); Blood Urea Nitrogen 14 mg/dL (9-16); Calcium 9.9 mg/dL (8.4-10.2); Carbon Dioxide 28 mmol/L (22-29); Chloride 105 mmol/L (96-108); Cholesterol 189 mg/dL (<200); Estimated Glomerular Filt Rate > 60; Glucose Random 102 mg/dL (60-115); HDL Cholesterol 38 mg/dL (>40); LDL Cholesterol Calculated 126 mg/dL (<100); Potassium 3.9 mmol/L (3.3-5.1); Sodium 140 mmol/L (135-145); Total Protein 7.6 g/dL (6.5-8.0); Triglycerides 126 mg/dL (<150)
[2023-10-01 11:36] LABS: Cortisol Random 7.6 ug/dL
[2023-10-01 11:37] LABS: TSH reflex Free T4 1.14 uIU/mL (0.32-4.0)
[2023-10-07 14:52] LABS: Metanephrine, Free 41 pg/mL (<=57); Normetanephrines, Free 101 pg/mL (<=148); Total Metanephrine, Free 142 pg/mL (<=205)
[2023-10-10 18:08] LABS: Renin 1.74 ng/mL/h (0.25-5.82)
[2023-10-13 13:54] LABS: Plasma Renin Activity 1.69 ng/mL/h (0.25-5.82)
== END 2023-10-01 09:59 | disposition home or self-care (01) ==
LOC: HO.LAB 09:58
PROVIDERS: Absent Provider Internal Medicine Nephrology; PCP Internal Medicine; Visit Provider Internal Medicine
DX: Z00.00 Encounter for general adult medical examination without abnormal findings (principal); I10 Essential (primary) hypertension; G43.109 Migraine with aura, not intractable, without status migrainosus; K58.2 Mixed irritable bowel syndrome; T78.3XXS Angioneurotic edema, sequela
CPT/HCPCS: 36415; 80053; 80061; 82088; 82533; 83835; 84244; 84443; 85025

== ENCOUNTER 2023-10-09 13:57 | Outpatient (AMB) | payer OTHER, SELFPAY ==
[2023-10-09 14:02] VITALS: BP 120/64; PULSE 68; O2SAT 98; BMI 34.0
--- NOTE | 2023-10-09 14:02 | HO.NEPHOV ---
Vital Signs 10/09/23 14:02 Height 5 ft 9 in Weight 230 lb 2 oz BMI 34.0 BP 120/64 Blood Pressure Location Lt brachial Position Sitting Pulse 68 Pulse Source Pulse Oximeter Pulse Oximetry (%) 98 Oxygen Delivery Method Room Air Intake Visit Reasons: Hypertension/ Conf [employer] Required: No Accompanied by: Self / Same As Patient Allergies No Known Allergies Allergy (Verified 10/09/23 14:04) HPI Comments Details: I had the pleasure of seeing Balaji in follow up for hypertension. He is 38 years of age and was found to be hypertensive and was initiated on medications. He has no history of any coronary artery disease, congestive heart failure, CVA, carotid stenosis, peripheral arterial disease. He has no history of smoking or dyslipidemia. He denies thyroid dysfunction, palpitation, chest pain, orthostatic symptoms, diarrhea, syncope, headache, visual disturbances. He has no history of any drug use. He has gained some weight. He does not take any excessive nonsteroidal anti-inflammatories. There were no specific systemic complaints at the time of this office visit. [facility] Surgical History History of surgery on arm History of tonsillectomy History of cholecystectomy Family History Father Hypertension Maternal Grandmother Hypertension Social History Alcohol intake: never Patient Tobacco Use Status: Never used Tobacco Review of Systems Const All systems reviewed & are unremarkable except as noted in HPI and below Physical Exam Vital Signs: Last Vital Signs Pulse 68 10/09/23 14:02 BP 120/64 10/09/23 14:02 Pulse Ox 98 10/09/23 14:02 Oxygen Delivery Method Room Air 10/09/23 14:02 BMI result Body Mass Index 34.0 Const General: comfortable and no acute distress Orientation/consciousness: patient oriented x3 HEENT Head: Yes normocephalic Mouth: Normal oral and palatal mucosa present Eyes EOM: EOMs intact bilaterally Neck Neck: Yes supple Resp Auscultation: clear to auscultation bilaterally Cardio Jugular venous distension: no JVD Rate: regular rate GI Palpation (GI): Soft to palpation Auscultation: normal bowel sounds General: Yes no CVA tenderness Back/Spine/Pelvis Back: no CVA tenderness Skin General skin exam: no rashes or lesions noted Neuro General: patient oriented x3 and moves all extremities Extrem General: Yes no pedal edema Results Reviewed Nephrology Results: Hgb 14.7 g/dl (14.0-18.0) 10/01/23 WBC 6.0 X10*3/uL (4.8-10.8) 10/01/23 Plt Count 242 X10*3/uL (160-400) 10/01/23 Sodium 140 mmol/L (135-145) 10/01/23 Potassium 3.9 mmol/L (3.3-5.1) 10/01/23 Chloride 105 mmol/L (96-108) 10/01/23 Carbon Dioxide 28 mmol/L (22-29) 10/01/23 BUN 14 mg/dL (9-16) 10/01/23 Creatinine 0.90 mg/dL (0.5-1.4) 10/01/23 Calcium 9.9 mg/dL (8.4-10.2) 10/01/23 Urine Protein Negative mg/dL (Neg-Trace) 08/24/23 Renal US 09/18/23 Assessment & Plan Assessment & Plan (1) Hypertension: Code(s): I10 - Essential (primary) hypertension Category: Medical Qualifiers: Hypertension type: unspecified Qualified Code(s): I10 - Essential (primary) hypertension (2) Renal artery stenosis: Code(s): I70.1 - Atherosclerosis of renal artery Category: Medical Plan Balaji has hypertension. He was investigated to rule out secondary etiology for hypertension. Doppler of renal arteries showed less than 60% narrowing of her right renal artery. His renin, aldosterone were pending.His thyroid functions, cortisol and plasma metanephrines were normal. He needs to be on a low-sodium diet and needs to lose weight. He has no symptoms suggestive of obstructive sleep apnea. He has no history of drug use and does not take excessive nonsteroidal anti-inflammatories. He is tolerating valsartan and his blood pressure is at goal. He was encouraged to maintain good hydration. All these have been explained in detail. Answered all questions. I intend to follow-up with a Doppler of his renal arteries in your time or before if he develops any indication. Follow-up lab work ordered and follow-up appointment given. Orders: Orders Creatinine Today I10 - Essential (primary) hypertension, I70.1 - Atherosclerosis of renal artery Blood Urea Nitrogen Today I10 - Essential (primary) hypertension, I70.1 - Atherosclerosis of renal artery Electrolytes Today I10 - Essential (primary) hypertension, I70.1 - Atherosclerosis of renal artery Medications: Changed From valsartan 80 mg PO DAILY 30 tabs 2RF To valsartan 80 mg PO DAILY 90 days 90 tabs 2RF Coding Level of Care Code Est Pt Level 4 (49407) Diagnoses Hypertension I10 Hypertension type: unspecified Renal artery stenosis I70.1
== END 2023-10-09 14:36 | disposition home or self-care (01) ==
PROVIDERS: Visit Provider Internal Medicine Nephrology
DX: I10 Essential (primary) hypertension (principal); I70.1 Atherosclerosis of renal artery
CPT/HCPCS: 99214

== ENCOUNTER → 2023-10-09 13:57 | Outpatient (BNVA) | payer OTHER, SELFPAY | PROVIDERS: Visit Provider Internal Medicine Nephrology | DX: I70.1 Atherosclerosis of renal artery (principal); I10 Essential (primary) hypertension | CPT/HCPCS: 99212 ==

== ENCOUNTER 2024-04-27 06:04 | Outpatient (REF) | payer OTHER, SELFPAY ==
[2024-04-27 08:05] LABS: Anion Gap 11 (12-20); Blood Urea Nitrogen 11 mg/dL (9-16); Carbon Dioxide 28 mmol/L (22-29); Chloride 107 mmol/L (96-108); Estimated Glomerular Filt Rate > 60; Potassium 3.9 mmol/L (3.3-5.1); Sodium 142 mmol/L (135-145)
== END 2024-04-27 06:05 | disposition home or self-care (01) ==
LOC: HO.LAB 06:04
PROVIDERS: PCP Internal Medicine; Visit Provider Internal Medicine Nephrology
DX: I10 Essential (primary) hypertension (principal); I70.1 Atherosclerosis of renal artery
CPT/HCPCS: 36415; 80051; 82565; 84520

== ENCOUNTER 2024-05-06 15:27 | Outpatient (AMB) | payer OTHER, SELFPAY ==
--- NOTE | 2024-05-06 15:46 | HO.NEPHOV ---
Vital Signs 05/06/24 15:47 Height 5 ft 9 in Weight 231 lb 4 oz BMI 34.1 BP 110/62 Blood Pressure Location Rt brachial Position Sitting Pulse 75 Pulse Source Pulse Oximeter Pulse Oximetry (%) 97 Oxygen Delivery Method Room Air Intake Visit Reasons: follow up-Conf Systems Support Officer Required: No Accompanied by: Self / Same As Patient Allergies No Known Allergies Allergy (Verified 05/06/24 15:47) HPI Comments Details: aBlaji in follow up for hypertension. He is 39 years of age and was found to be hypertensive and was initiated on medications. He has no history of any coronary artery disease, congestive heart failure, CVA, carotid stenosis, peripheral arterial disease. He has no history of smoking or dyslipidemia. He denies thyroid dysfunction, palpitation, chest pain, orthostatic symptoms, diarrhea, syncope, headache, visual disturbances. He has no history of any drug use. He has gained some weight. He does not take any excessive nonsteroidal anti-inflammatories. There were no specific systemic complaints at the time of this office visit. ON LICENSE OF [facility] Surgical History History of surgery on arm History of tonsillectomy History of cholecystectomy Family History Father Hypertension Maternal Grandmother Hypertension Social History Alcohol intake: never Patient Tobacco Use Status: Never used Tobacco Review of Systems Const All systems reviewed & are unremarkable except as noted in HPI and below Physical Exam Vital Signs: Last Vital Signs Pulse 75 05/06/24 15:47 BP 110/62 05/06/24 15:47 Pulse Ox 97 05/06/24 15:47 Oxygen Delivery Method Room Air 05/06/24 15:47 BMI result Body Mass Index 34.1 Const General: comfortable and no acute distress Orientation/consciousness: patient oriented x3 HEENT Head: Yes normocephalic Mouth: Normal oral and palatal mucosa present Eyes EOM: EOMs intact bilaterally Neck Neck: Yes supple Resp Auscultation: clear to auscultation bilaterally Cardio Jugular venous distension: no JVD Rate: regular rate Heart sounds: Murmur heart sound present GI Palpation (GI): Soft to palpation Auscultation: normal bowel sounds Skin General skin exam: no rashes or lesions noted Neuro General: patient oriented x3 and moves all extremities Extrem General: Yes no pedal edema Results Reviewed Nephrology Results: Hgb 14.7 g/dl (14.0-18.0) 10/01/23 WBC 6.0 X10*3/uL (4.8-10.8) 10/01/23 Plt Count 242 X10*3/uL (160-400) 10/01/23 Sodium 142 mmol/L (135-145) 04/27/24 Potassium 3.9 mmol/L (3.3-5.1) 04/27/24 Chloride 107 mmol/L (96-108) 04/27/24 Carbon Dioxide 28 mmol/L (22-29) 04/27/24 BUN 11 mg/dL (9-16) 04/27/24 Creatinine 0.84 mg/dL (0.5-1.4) 04/27/24 Calcium 9.9 mg/dL (8.4-10.2) 10/01/23 Urine Protein Negative mg/dL (Neg-Trace) 08/24/23 Renal US 09/18/23 Assessment & Plan Assessment & Plan (1) Renal artery stenosis: Code(s): I70.1 - Atherosclerosis of renal artery Category: Medical Plan Balaji has hypertension. He was investigated to rule out secondary etiology for hypertension. Doppler of renal arteries showed less than 60% narrowing of her right renal artery. His renin, aldosterone were normal.His thyroid functions, cortisol and plasma metanephrines were normal. He needs to be on a low-sodium diet and needs to lose weight. He has no symptoms suggestive of obstructive sleep apnea. He has no history of drug use and does not take excessive nonsteroidal anti-inflammatories. He is tolerating valsartan and his blood pressure is at goal. He was encouraged to maintain good hydration. I intend to follow-up with a Doppler of his renal arteries in your time or before if he develops any indication. Follow-up lab work ordered and follow-up appointment given. Orders: Orders Creatinine 1 Year I70.1 - Atherosclerosis of renal artery Blood Urea Nitrogen 1 Year I70.1 - Atherosclerosis of renal artery Electrolytes 1 Year I70.1 - Atherosclerosis of renal artery Protein Creatinine Ratio, Ur 1 Year I70.1 - Atherosclerosis of renal artery Medications: Refilled valsartan 80 mg PO DAILY 90 days 90 tabs 4RF Coding Level of Care Code Est Pt Level 4 (79634) Diagnoses Renal artery stenosis I70.1
[2024-05-06 15:47] VITALS: BP 110/62; PULSE 75; O2SAT 97; BMI 34.1
--- OUTSIDE RECORDS SUMMARY | 2024-05-06 18:41 | XMS_ITS | Clinical Summary ---
Author Organization [employer] Address [address] [facility] [address] [place] [address] Care Team Providers Care Analysis Reporting Developer Name Role Phone Unavailable Primary Care Provider Unavailabl e Social History Tobacco Use Types Packs/Day Years Used Date Smoking Tobacco: Never Assessed Sex and Gender Information Value Date Recorded Sex Assigned at Male 08/29/2023 9:04 AM EDT Legal Sex Male 8:30 AM EDT Gender Identity Male 08/29/2023 9:04 AM EDT Sexual Orientation Not on file Plan of Treatment Health Maintenance Due Date Last Done Comments Depression Screening 1987 HIV Screening 1987 Lipid Panel 1987 SDOH Screening 1987 Alcohol/Substance Use Screening 1999 Tobacco Screening 1999 Family Planning (PISQ) 2002 Hepatitis C Screening 2005 DTaP/Tdap/Td Vaccines (1 - Tdap) 2006 Hepatitis B Vaccines (1 of 3 - 19+ 3-dose series) 2006 COVID-19 Vaccine ( - 2023-2 5 season) 2023 Influenza Vaccine (#1) 2023 Zoster Vaccines (1 of 2) 2037 RSV Patients and Pa tients Aged 60 years or older (1 - 1-dose 75+ series) 2062 HIB Vaccines Aged Out No longer eligi ble based on patient's age to complete this topic HPV Vaccines Aged Out No longer eligi ble based on patient's age to complete this topic Hepatitis A Vaccines Aged Out No long er eligible based on patient's age to complete this topic IPV Vaccines Aged Out No longer eligi ble based on patient's age to complete this topic Meningococcal Vaccine Aged Out No remy olivia eligible based on patient's age to complete this topic Pneumococcal Vaccine: Pediat rics (0 to 5 Years) and At-Risk Patients (6 to 49) Years) Aged Out No longer eligible b ased on patient's age to complete this topic RSV under 20 months Aged Out No longe r eligible based on patient's age to complete this topic Rotavirus Vaccines Aged Out No longer eligible based on patient's age to complete this topic
== END 2024-05-06 16:10 | disposition home or self-care (01) ==
PROVIDERS: PCP Internal Medicine; Visit Provider Internal Medicine Nephrology
DX: I70.1 Atherosclerosis of renal artery (principal)
CPT/HCPCS: 99214

== ENCOUNTER → 2024-05-06 15:27 | Outpatient (BNVA) | payer OTHER, SELFPAY | PROVIDERS: PCP Internal Medicine; Visit Provider Internal Medicine Nephrology | DX: I10 Essential (primary) hypertension (principal); I70.1 Atherosclerosis of renal artery | CPT/HCPCS: 99212 ==

== ENCOUNTER 2024-09-16 06:21 | Outpatient (REF) | payer OTHER, SELFPAY ==
--- OUTSIDE RECORDS SUMMARY | 2024-09-16 06:23 | XMS_ITS | Clinical Summary ---
Author Organization [address] Address [address] [place] [phone] Phone Care Team Providers Care Aviation Boatswain'S Mate Name Role Phone Maya Henry MD Primary Care Provider Allergies Active Allergy Reactions Criticality Noted Date Comments Pollen Extracts 09/19/2020 Medications EPINEPHrine (EPIPEN-JR) 0.15 mg/0.3 mL injection INJECT 0.15 MG INTO THE MUSCLE NEEDED FOR OTHER (ANAPHYLACTIC REACTION). 2-PACK. FILL WITH WHICHEVER BRAND IS COVERED BY INSURANCE. 4 Active dicyclomine (BENTYL) 10 mg capsule Take 1 Capsule by mouth 4 times daily (before meals and nightly). 3 Active docusate sodium (COLACE) 100 mg capsule Take 1 capsule (100 mg total) by mouth 2 (two) times a day. 3 Active polyethylene glycol (MIRALAX) 17 gram packet Take 1 Packet by mouth daily. 3 Active senna (SENOKOT) 8.6 mg tablet Take 1 tablet (8.6 mg total) by mouth 1 (one) time each day. 3 Active loperamide (IMODIUM) 2 mg capsule Take 1 Capsule by mouth 4 times daily as needed for Diarrhea. 3 Active famotidine (PEPCID) 20 mg tablet Take 1 Tablet by mouth 2 times daily as needed for Heartburn. 3 Active SUMAtriptan (IMITREX) 25 mg tablet TAKE ONE TABLET AT THE BEGINNING OF HEADACHE MAY REPEAT DOSE ONCE AFTER 2 HOURS NOT MORE THAN 2 TABLETS IN ANY 24 HOURS. 3 Active ergocalciferol (VITAMIN D-2) 1,250 mcg (50,000 unit) capsule Take 1 Capsule by mouth once a week. 3 Active fexofenadine (KIKE) 180 mg tablet Take 1 tablet (180 mg total) by mouth 1 (one) time each day. 3 Active ketotifen (ZADITOR) 0.025 % ophthalmic solution Apply 1 drop to both eyes twice daily as needed 2 Active valACYclovir (VALTREX) 500 mg tabletIndication s:Herpesviral infection, unspecified TAKE 1 TABLET BY MOUTH 2 TIMES DAILY FOR 3 DAYS. FOR COLD SORES - WITH FLARES 6 tablet 5 5 Active Active Problems Problem Noted Date Diagnosed Date Hypertriglyceridemia 07/26/2017 Asthma 07/09/2017 Bilateral chronic knee pain 07/09/2017 Chronic arm pain 07/09/2017 Overview (12/27/2023): L upper arm pain secondary to mid-humeral shaft fx 2010. GERD (gastroesophageal reflux disease) 8 Herpes simplex virus (HSV) infection 07/09/2017 Overview (12/27/2023): HSV 1, lips-occurring q couple months or so. HTN (hypertension) 07/09/2017 Immunizations Name Administration Dates Next Due Influenza trivalent, with pr eservative (Fluzone; Afluria) 6mo and older 12/24/2013 Td Tetanus diptheria (Tdvax) 7yo and older 11/26 Tdap Tetanus diptheria acell ular pertussis (Boostrix; Adacel) 7yo and older 10/09/2021 Surgical History Surgery Date Site/Laterality Comments OTHER SURGICAL HISTORY 2010 Left PROCEDURE: HISTORICAL ARM SURGERY; COMMENT: L humerus fx, s/p ORIF w/ plate and screws CHOLECYSTECTOMY 2009 PROCEDURE: HISTORICAL CHOLECYSTECTOMY Medical History Medical History Date Comments HTN (hypertension) 07/09/2017 DX:HTN (hyper tension) GERD (gastroesophageal reflu x disease) 07/09/2017 DX:GERD (gastroesophageal re flux disease) Chronic arm pain 07/09/2017 DX:Chronic arm pain; COMMENT: L upper arm pain secondary to mid-humeral shaft fx 2010. Herpes simplex virus (HSV) infection 07/09/2017 DX:Herpes simplex virus (HSV) infection; COMMENT: HSV 1, lips-occurring q couple months or so. Bilateral chronic knee pain 07/09/2017 DX:B ilateral chronic knee pain Childhood asthma 07/09/2017 DX:Childhood as thma Migraine headache DX:Migraine he adache Irritable bowel syndrome DX:Irri table bowel syndrome Abdominal cramping DX:Abdominal cramping Family History Medical History Relation Name Comments Hypertension Father Leukemia Maternal Grandfather Breast cancer Maternal Grandmother CAD Coronary artery disease Maternal Grandmother DHAVAL disease Mother migraines, hypo tension, arthritis Diabetes Neg Hx Relation Name Status Comments Brother 1 Alive Brother 2 Alive Father Alive Maternal Grandfather Maternal Grandmother Alive Mother Alive Paternal Grandfather Paternal Grandmother Alive Sister 1 Alive Sister 2 Alive Social History Tobacco Use Types Packs/Day Years Used Date Smoking Tobacco: Never Smokeless Tobacco: Never Alcohol Use Standard Drinks/Week Comments Yes 0 (1 standard drink = 0.6 oz pur e alcohol) Sex and Gender Information Value Date Recorded Sex Assigned at Not on file Legal Sex Male 6:15 AM EST Gender Identity Not on file Sexual Orientation Not on file Obstetrics History Last Filed Vital Signs Vital Sign Reading Time Taken Comments Blood Pressure 134/68 07/12/2022 9:35 AM EDT Pulse 68 07/12/2022 9:35 AM EDT Temperature - - Respiratory Rate - - Oxygen Saturation - - Inhaled Oxygen Concentration - - Weight 101 kg (223 lb) 07/12/2022 9:35 AM EDT Height 175.3 cm (5' 9 ) 07/12/2022 9:35 AM EDT Body Mass Index 32.93 07/12/2022 9:35 AM EDT Plan of Treatment Upcoming Encounters Date Type Department Care Team (Late st Contact Info) Description 10/01/2024 2:00 PM EDT Consult Orthopedic Surgery - [place] [address] [phone] Ash Mirza, DPM [address] [id number] Health Maintenance Due Date Last Done Comments Hepatitis B Vaccines (1 of 3 - 19+ 3-dose series) 2006 Pneumococcal Vaccine: Pediatrics (0 to 5 Years) and At-Risk Patients (6 to 49 Years) (1 of 2 - PCV) 2006 Depression Screening 02/10/2022 Social Influencers of Health Screening 02/10/2022 Hypertension/CHF/CAD Annual BMP Blood Test 04/18/2023 04/18/2022 COVID-19 Vaccine (3 - 2023-2 5 season) 2023 07/20/2020, 06/29/2020 Influenza Vaccine (#1) 2024 12/24/2013 Cholesterol Screening (Lipid Panel) 04/18/2027 04/18/2022 DTaP,Tdap,and Td Vaccines (3 - Td or Tdap) 10/10/2031 10/09/2021, 11/26/2008 HIV Screening Completed 09/19/2020 Hepatitis C Screening Completed 09/19/2020 HIB Vaccines Aged Out No longer eligi [...] on patient's age to complete this topic MMR Vaccines Aged Out No longer eligi ble based on patient's age to complete this topic Meningococcal ACWY Vaccine Aged Out N o longer eligible based on patient's age to complete this topic Meningococcal B Vaccine Aged Out No l onger eligible based on patient's age to complete this topic RSV Immunization Patients Under 20 months Aged Out No longer eligible b ased on patient's age to complete this topic Varicella Vaccines Aged Out No longer eligible based on patient's age to complete this topic Procedures Procedure Name Priority Date/Time Associated Diagnosis Comments ANNUAL BMP BLOOD TEST Routine 04/18/2022 LIPID PANEL Routine 04/18/2022 HEPATITIS C SCREENING Routine 09/19/2020 HIV SCREENING Routine 09/19/2020 from Last 3 Months or Most Recently Relevant to Health Maintenance Results * Annual BMP Blood Test (04/18/2022) Pathologist [facility] Annual BMP Blood Test abstracted [facility] Provider HEALTH MAINTENANCE Final Result * (ABNORMAL) Lipid panel (04/18/2022) [facility] LDL/HDL Ratio 5(A) 0 - 4 Triglycerides 151(A) 0 - 150 mg/dL Cholesterol 175 0 - 200 mg/dL HDL 35(A) >=40 mg/dL LDL Cholesterol 110(A) 0 - 100 mg/dL Blood Venous blood specimen / Unknown [facility] Provider LAB BLOOD ORDERABLES Juliann l Result * HIV Screening (09/19/2020) [facility] HIV Screening abstracted [facility] Provider HEALTH MAINTENANCE Final Result * Hepatitis C Screening (09/19/2020) [facility] Hepatitis C Screening abstracted [facility] Provider HEALTH MAINTENANCE Final Result from Last 3 Months or Most Recently Relevant to Health Maintenance Insurance [place]ICA[place] - [place] [facility] [employer] [facility] Care Teams Aviation Boatswain'S Mate Relationship Specialty Start Date End Date Maya Henry MD [address] [place] [address] [place] [address] PCP - General Internal Medicine 07/16/24
--- OUTSIDE RECORDS SUMMARY | 2024-09-16 06:23 | XMS_ITS | Clinical Summary ---
Author Organization [employer] Address [address] [facility] [address] [place] [address] Care Team Providers Care Miniature Model Maker Name Role Phone Unavailable Primary Care Provider [...] Date Last Done Comments Depression Screening 1987 Lipid Panel 1987 Disability Screening 1987 Alcohol/Substance Use Screening 1999 Tobacco Screening 1999 Family Planning (PISQ) 2002 HPV Vaccines (1 - Male 3-dos e series) 2002 DTaP/Tdap/Td Vaccines (1 - Tdap) 2006 Hepatitis B Vaccines (1 of 3 - 19+ 3-dose series) 2006 COVID-19 Vaccine (1 - 2023-2 5 season) 2023 Influenza Vaccine (#1) 2024 Zoster Vaccines (1 of 2) 2037 RSV [...] Years) and At-Risk Patients (6 to 49) Years Aged Out No longer eligible b ased on patient's age to complete this topic RSV under 20 months Aged Out No longe r eligible based on patient's age to complete this topic Rotavirus Vaccines Aged Out No longer eligible based on patient's age to complete this topic
[2024-09-16 08:16] LABS: Alanine Aminotransferase 28 U/L (0-40); Albumin Level 4.6 g/dL (3.5-5.0); Alkaline Phosphatase 90 U/L (39-117); Anion Gap 10 (12-20); Aspartate Amino Transferase 26 U/L (5-37); Blood Urea Nitrogen 15 mg/dL (9-16); Calcium 9.9 mg/dL (8.4-10.2); Carbon Dioxide 28 mmol/L (22-29); Chloride 107 mmol/L (96-108); Cholesterol 186 mg/dL (<200); Estimated Glomerular Filt Rate > 60; HDL Cholesterol 36 mg/dL (>40); Potassium 4.2 mmol/L (3.3-5.1); Sodium 141 mmol/L (135-145); Total Protein 7.3 g/dL (6.5-8.0); Triglycerides 136 mg/dL (<150)
== END 2024-09-16 06:22 | disposition home or self-care (01) ==
LOC: HO.LAB 06:21
PROVIDERS: PCP Internal Medicine; Visit Provider Internal Medicine
DX: I10 Essential (primary) hypertension (principal); I70.1 Atherosclerosis of renal artery; K58.2 Mixed irritable bowel syndrome
CPT/HCPCS: 36415; 80053; 80061

== ENCOUNTER 2024-11-11 13:47 | Outpatient (REF) | payer OTHER, SELFPAY ==
[2024-11-11 15:12] LABS: Appearance Urine Clear; Glucose Urine UA Negative (Negative); PH 6.5 (5.0-9.0); Specific Gravity - Urine 1.025 (1.005-1.025)
--- OUTSIDE RECORDS SUMMARY | 2024-11-11 16:53 | XMS_ITS ---
Author Name [facility] Organization Unknown Care Team Organization Name Specialty Phone Email Start Date End Da te [facility] Dinesh Park Primary Care 05/09/202210/02 [facility] Rainer Stuart Primary Care 01/09/2022 10/21/2023
--- OUTSIDE RECORDS SUMMARY | 2024-11-11 16:53 | XMS_ITS | Clinical Summary ---
Author Organization [facility] Address [address] [place] [phone] Phone Care Team Providers Care Naval Gunfire Liaison Officer Name Role Phone Dinesh Park MD Unavailable [phone] Rainer Stuart MD Primary Care Provider [phone] Allergies Active Allergy Reactions Criticality Noted Date Comments Grass Pollen 11/15/2021 Seasonal, Medications SUMAtriptan (IMITREX) 25 MG tablet Take 25 mg by mouth as needed. 2 Active valACYclovir (VALTREX) 500 MG tablet Take 500 mg by mouth 2 (two) times a day as needed. 2 Active ketotifen (ZADITOR) 0.025 % (0.035 %) ophthalmic solution APPLY 1 DROP TO BOTH EYES TWICE DAILY NEEDED 2 Active fexofenadine (KIKE) 180 MG tablet Take 180 mg by mouth daily. 2 Active DESCOVY 200-25 mg tablet Take 1 tablet by mouth daily. 2 Active ondansetron (ZOFRAN-ODT) 4 MG disintegrating tablet Take 1 tablet (4 mg total) by mouth every 8 (eight) hours as needed for nausea. 15 tablet 1 2 Active acetaminophen (TYLENOL) 160 mg/5 mL Soln 10 to 20 mL every 5 hours as needed for pain. 300 mL 3 2 Active celecoxib (CELEBREX) 200 MG capsule Take 1 capsule (200 mg total) by mouth 2 (two) times a day as needed for pain (specific location in comments). 28 capsule 2 Active oxyCODONE 5 MG immediate release tablet 1 to 2 tablets every 5 hours as needed for pain. Partial fill ok 30 tablet 2 Active Family History Medical History Relation Comments Hypertension Maternal Grandfather Hypertension Maternal Grandmother Relation Status Comments Maternal Grandfather Maternal Grandmother Social History Tobacco Use Types Packs/Day Years Used Date Smoking Tobacco: Never Smokeless Tobacco: Never Tobacco Cessation:Counseling Given: Not Answered Alcohol Use Standard Drinks/Week Comments Yes 1 (1 standard drink = 0.6 oz pur e alcohol) Like 2 times in a month Education Answer Date Recorded Are you interested in more education? Not on kareen e 06/30/2022 Are you concerned about learning? Not on file 06/30/2022 No 06/30/2022 No 06/30/2022 Digital Access Answer Date Recorded No 07/29/2022 No 07/29/2022 No 07/29/2022 Reliable internet access at home? Not on file 07/29/2022 Device with a working camera? Not on file Sex and Gender Information Value Date Recorded Sex Assigned at Male 12/07/2021 7:12 PM EDT Legal Sex Male 11:03 AM EDT Gender Identity Male 11/12/2021 2:46 PM EDT Sexual Orientation Straight 12/27/2021 4: 29 PM EDT Last Filed Vital Signs Vital Sign Reading Time Taken Comments Blood Pressure 151/111 02/12/2022 4:24 PM EST ok to d/c per anesthesia Pulse 74 02/12/2022 4:24 PM EST Temperature 36.5 C (97.7 F) 02/12/2022 3:41 PM EST Respiratory Rate 19 02/12/2022 4:24 PM EST Oxygen Saturation 100% 02/12/2022 4:0 2 PM EST Inhaled Oxygen Concentration - - Weight 103.4 kg (228 lb) 02/12/2022 1:2 2 PM EST Height 175.3 cm (5' 9 ) 02/12/2022 1:22 PM EST Body Mass Index 33.67 02/12/2022 1:22 PM EST Plan of Treatment Health Maintenance Due Date Last Done Comments LIPID PANEL 1987 DEPRESSION SCREENING 1999 HEPATITIS C SCREENING 2005 HIV ONE-TIME SCREENING (18-6 5 YEARS) 2005 SCREENING FOR DIABETES 2022 INFLUENZA VACCINE (#1) 2024 12/24/2013 COVID-19 VACCINE (3 2024-2 6 season) 2024 07/20/2020, 06/29/2020 Adult Td,Tdap Booster 10/10/2031 10/09/2021 , 11/26/2008 SMOKING STATUS SCREENING (On ce After 26 Yrs) Completed 02/12/2022 HEPATITIS A VACCINES Aged Out No long er eligible based on patient's age to complete this topic HIB VACCINES Aged Out No longer eligi ble based on patient's age to complete this topic MENINGOCOCCAL VACCINES (ACWY) Aged Out No longer eligible based on patient's age to complete this topic MENINGOCOCCAL VACCINES (B) Aged Out N o longer eligible based on patient's age to complete this topic PNEUMOCOCCAL VACCINES (0-49 years) Aged Out No longer eligible b ased on patient's age to complete this topic Medical Devices Not on file Insurance [employer] [address] [place], [place] [id number] [employer] [facility] As It Is [employer] [place] [employer] Member Subscriber Plan / Payer (Ef fective 2021-Present) Name:Balaji Valdez Relation to Subscriber:Self Name:Balaji Valdez Payer ID:[id number] Group ID:[id number] Type:Medicaid Address: [place] [id number] [facility] [employer] Advance Directives For more information, please contact: [phone] (9AM - 5PM Katya/[facility], Saturday-Saturday) Documents on File Type Date Recorded Patient Seat Maker Expl anation Healthcare Proxy 02/16/2022 4:50 AM Care Teams Naval Gunfire Liaison Officer Relationship Specialty Start Date End Date Rainer Stuart MD [address] [place] [phone] PCP - General Internal Medicine 10/12/21 Dinesh Park MD [address] [place] [address] Hospitalist 10/12/21 Additional Source Comments The information contained in this document represents components of the legal health record. It is not the complete legal health record.[facility]
--- OUTSIDE RECORDS SUMMARY | 2024-11-11 16:53 | XMS_ITS | Encounter Summary ---
Author Organization [facility] Address [address] [place] [address] [place] [phone] Phone Care Team Providers Care Door Liner Helper Name Role Phone Dinesh Park MD Unavailable [phone] Rainer Stuart MD Primary Care Provider [phone] Encounter Details Date Type Department Care Team (Late st Contact Info) Description 12/20/2021 Procedure Pass [facility] PERIOP DEPT [address] [place] [address] Social History Tobacco Use Types Packs/Day Years Used Date Smoking Tobacco: Never Smokeless Tobacco: Never Alcohol Use Standard Drinks/Week Comments Yes 1 (1 standard drink = 0.6 oz pur e alcohol) Like 2 times in a month Sex and Gender Information Value Date Recorded Sex Assigned at Male 12/07/2021 7:12 PM EDT Legal Sex Male 11:03 AM EDT Gender Identity Male 11/12/2021 2:46 PM EDT Sexual Orientation Straight 12/27/2021 4: 29 PM EDT documented as of this encounter Plan of Treatment Not on file documented as of this encounter Visit Diagnoses Not on filedocumented in this encounter Additional Health Concerns Infection Onset Date Last Indicated Resolved Time COVID-19 12/18/2021 12/18/2021 01/08/2022 1:21 AM EST documented as of this encounter Care Teams Door Liner Helper Relationship Specialty Start Date End Date Rainer Stuart MD [address] [place] [phone] PCP - General Internal Medicine 10/12/21 Dinesh Park MD [address] [place] [phone] Hospitalist 10/12/21 documented as of this encounter Additional Source Comments The information contained in this document represents components of the legal health record. It is not the complete legal health record.[facility]
--- OUTSIDE RECORDS SUMMARY | 2024-11-11 16:53 | XMS_ITS | Clinical Summary ---
Author Organization [address] Address [address] [place] [address] Phone Care Team Providers Care Elevator Constructor Supervisor Name Role Phone Maya Henry MD Primary Care Provider [phone] Allergies Active Allergy Reactions Criticality Noted Date [...] couple months or so. HTN (hypertension) 07/09/2017 Encounters Date Type Department Care Team Description 10/01/2024 2:00 PM EDT Consult Orthopedic Surgery - [address] [address] Ash Mirza, DPM Pes planus of both feet (Primary Dx); Metatarsalgia of both feet; Pain in both feet from Last 3 Months Immunizations Name Administration Dates Next Due Influenza [...] - Inhaled Oxygen Concentration - - Weight 99.8 kg (220 lb) 10/01/2024 2:06 PM EDT Height 175.3 cm (5' 9 ) 10/01/2024 2:06 PM EDT Body Mass Index 32.49 10/01/2024 2:06 PM EDT Plan of Treatment Upcoming Encounters Date Type Department Care Team (Late st Contact Info) Description 11/19/2024 1:45 PM EDT Office Visit Orthopedic Surgery - [place] 250 175 [facility] 250 [place] [phone] Ash Mirza, DPM [address] [address] Health Maintenance Due Date Last Done Comments Hepatitis B Vaccines (1 of 3 - 19+ 3-dose series) 2006 Pneumococcal Vaccine: Pediatrics (0 to 5 Years) and At-Risk Patients (6 to 49 Years) (1 of 2 - PCV) 2006 Social Influencers of Health Screening 02/10/2022 Hypertension/CHF/CAD Annual BMP Blood Test 04/18/2023 04/18/2022 Depression Screening 03/04/2024 COVID-19 Vaccine (3 - 2024- season) 2024 07/20/2020, 06/29/2020 Influenza Vaccine (#1) 2024 5, 02/01/2014, 12/24/2013, Additional history exists Cholesterol Screening (Lipid Panel) 04/18/2027 04/18/2022 DTaP,Tdap,and Td Vaccines (3 - Td or Tdap) 10/10/2031 10/09/2021, 11/26/2008, 11/26/2008 HIV Screening Completed 09/19/2020 Hepatitis C [...] 20 months Aged Out No longer eligible based on [...] Results * Annual BMP Blood Test (04/18/2022) [facility] Annual BMP Blood Test abstracted [facility] Provider HEALTH MAINTENANCE Final Result * (ABNORMAL) Lipid panel (04/18/2022) [facility] LDL/HDL Ratio 5(A) 0 - 4 Triglycerides 151(A) 0 - 150 mg/dL Cholesterol 175 0 - 200 mg/dL HDL 35(A) >=40 mg/dL LDL Cholesterol 110(A) 0 - 100 mg/dL Blood Venous blood specimen / Unknown [facility] Provider LAB BLOOD ORDERABLES Juliann l Result * HIV Screening (09/19/2020) [facility] HIV Screening abstracted [facility] Provider HEALTH MAINTENANCE Final Result * Hepatitis C Screening (09/19/2020) [facility] Hepatitis C Screening abstracted [facility] Provider HEALTH MAINTENANCE Final Result from Last 3 Months or Most Recently Relevant to Health Maintenance Insurance MEDICAID - [place] [facility] Care Teams Elevator Constructor Supervisor Relationship Specialty Start Date End Date Maya Henry MD [address] [place] [address] [place] [address] PCP - General Internal Medicine 07/16/24
--- OUTSIDE RECORDS SUMMARY | 2024-11-11 16:53 | XMS_ITS | Clinical Summary ---
Author Organization [employer] Address [address] [facility] 7t [place] [address] Care Team Providers Care Food Service Agent Name Role Phone Unavailable Primary Care Provider [...] COVID-19 Vaccine (1 - 2023-2 5 season) 2024 Influenza Vaccine (#1) 2024 Zoster Vaccines (1 [...]
--- OUTSIDE RECORDS SUMMARY | 2024-11-11 16:53 | XMS_ITS | Encounter Summary ---
Author Organization [facility] Address [address] [place] [address] [place] [address] Phone Care Team Providers Care Weed Burner Name Role Phone Dinesh Park MD Unavailable [phone] Rainer Stuart MD Primary Care Provider [phone] Encounter Details Date Type Department Care Team (Late st Contact Info) Description 02/12/2022 Procedure Pass ALEJANDRO LW PERIOP DEPT 800 [place] [address] Social History Tobacco Use Types Packs/Day Years [...] Diagnoses Not on filedocumented in this encounter Care Teams Weed Burner Relationship Specialty Start Date End Date Rainer Stuart MD [address] [place] [address] PCP - General Internal Medicine 10/12/21 Dinesh Park MD 115 [place] [address] Hospitalist 10/12/21 documented as of this encounter Additional Source Comments The information contained in this document represents components of the legal health record. It is not the complete legal health record.[facility]
== END 2024-11-11 13:48 | disposition home or self-care (01) ==
LOC: HO.LAB 13:47
PROVIDERS: PCP Internal Medicine; Visit Provider Internal Medicine Nephrology
DX: R31.9 Hematuria, unspecified (principal)
CPT/HCPCS: 81003; 87086

== ENCOUNTER 2024-11-13 10:25 | Outpatient (REF) | payer OTHER, SELFPAY ==
--- NOTE | ~2024-11-13 | US_ITS ---
EXAMINATION: US KIDNEY BILATERAL HISTORY: R10.9 - Unspecified abdominal pain TECHNIQUE: Real-time grayscale ultrasound imaging of the kidneys was performed and images were reviewed. COMPARISON: Comparison is made with the prior examination dated 09/18/2023. FINDINGS: Right kidney: The right kidney measures 11.7 x 5.5 x 5.9 cm. Renal parenchymal echotexture and thickness are normal. There are no masses. There is mild hydronephrosis. No calculi are identified. Left Kidney: The left kidney measures 12.8 x 5.8 x 4.1 cm. Renal parenchymal echotexture and thickness are normal. There are no masses. There is mild hydronephrosis. No calculi are identified. US/US renal BI IMPRESSION: Mild bilateral hydronephrosis. Otherwise unremarkable renal ultrasound. Electronically signed by: Oral King MD 11/13/2024 11:10 AM EDT
--- OUTSIDE RECORDS SUMMARY | 2024-11-13 11:59 | XMS_ITS | Clinical Summary ---
Author Organization [employer] Address [address] [facility] 7t [place] [address] Care Team Providers Care Slitter Operator Name Role Phone Unavailable Primary Care Provider [...]
--- OUTSIDE RECORDS SUMMARY | 2024-11-13 12:00 | XMS_ITS | Encounter Summary ---
Author Organization [facility] Address [address] [place] [address] [place] [address] Phone Care Team Providers Care Hot Blaster Name Role Phone Dinesh Park MD Unavailable [phone] Rainer Stuart MD Primary Care Provider [phone] Encounter Details Date Type Department Care Team (Late st Contact Info) Description 12/20/2021 Procedure Pass ALEJANDRO LW PERIOP DEPT 800 [place] [address] Social History Tobacco Use Types Packs/Day Years [...] documented as of this encounter Care Teams Hot Blaster Relationship Specialty Start Date End Date Rainer Stuart MD [address] [place] [address] PCP - General Internal Medicine 10/12/21 Dinesh Park MD [address] [place] [address] Hospitalist 10/12/21 documented as of this encounter Additional Source Comments The information contained in this document represents components of the legal health record. It is not the complete legal health record.[facility]
--- OUTSIDE RECORDS SUMMARY | 2024-11-13 12:00 | XMS_ITS | Clinical Summary ---
Author Organization [facility] Address [address] [place] [address] Phone Care Team Providers Care Distribution Engineer Name Role Phone Dinesh Park MD Unavailable [phone] Rainer Stuart MD Primary Care Provider [phone] Allergies Active Allergy Reactions Criticality Noted Date [...] topic Medical Devices Not on file Insurance [employer] [address] [place], [place] [address] ALLANCE ACO [facility] [address]T [employer] Member Subscriber Plan / Payer (Ef fective 2021-Present) Name:Balaji Valdez Relation to Subscriber:Self Name:Balaji Valdez Payer ID:[id number] Group ID:[id number] Type:Medicaid Address: [place] [id number] [facility] ALL[employer] Advance Directives For more information, please contact: [phone] (9AM - 5PM Katya/[facility], Saturday-Saturday) Documents on File Type Date Recorded Patient Gear Finisher Expl anation Healthcare Proxy 02/16/2022 4:50 AM Care Teams Distribution Engineer Relationship Specialty Start Date End Date Rainer Stuart MD [address] [place] [address] PCP - General Internal Medicine 10/12/21 Dinesh Park MD 115 [place] [address] Hospitalist 10/12/21 Additional Source Comments The information contained in this document represents components of the legal health record. It is not the complete legal health record.[facility]
--- OUTSIDE RECORDS SUMMARY | 2024-11-13 12:00 | XMS_ITS | Clinical Summary ---
Author Organization [address] Address [address] [place] [address] Phone Care Team Providers Care Engineer Second Assistant Name Role Phone Maya Henry MD Primary Care Provider [phone] Allergies Active Allergy Reactions Criticality Noted Date [...] 2:00 PM EDT Consult Orthopedic Surgery - [address] [address] Ash Mirza, DPM Pes planus [...] PM EDT Office Visit Orthopedic Surgery - [place] 250 175 [facility] 250 [place] [phone] Ash Mirza, DPM [address] [address] Health Maintenance Due Date Last [...] Results * Annual BMP Blood Test (04/18/2022) [facility] Annual BMP Blood Test abstracted [facility] Provider HEALTH MAINTENANCE Final Result * (ABNORMAL) Lipid panel (04/18/2022) [facility] LDL/HDL Ratio 5(A) 0 - 4 Triglycerides 151(A) 0 - 150 mg/dL Cholesterol 175 0 - 200 mg/dL HDL 35(A) >=40 mg/dL LDL Cholesterol 110(A) 0 - 100 mg/dL Blood Venous blood specimen / Unknown [facility] Provider LAB BLOOD ORDERABLES Juliann l Result * HIV Screening (09/19/2020) [facility] HIV Screening abstracted [facility] Provider HEALTH MAINTENANCE Final Result * Hepatitis C Screening (09/19/2020) [facility] Hepatitis C Screening abstracted [facility] Provider HEALTH MAINTENANCE Final Result from Last 3 Months or Most Recently Relevant to Health Maintenance Insurance [place] - [place] [facility] PLAN Care Teams Engineer Second Assistant Relationship Specialty Start Date End Date Maya Henry MD [address] [place] [address] [place] [address] PCP - General Internal Medicine 07/16/24
--- OUTSIDE RECORDS SUMMARY | 2024-11-13 12:00 | XMS_ITS | Encounter Summary ---
Author Organization [facility] Address [address] [place] [address] [place] [address] Phone Care Team Providers Care Dietetics Professor Name Role Phone Dinesh Park MD Unavailable [phone] Rainer Stuart MD Primary Care Provider [phone] Encounter Details Date Type Department Care Team (Late st Contact Info) Description 02/12/2022 Procedure Pass ALEJANDRO LW PERIOP DEPT 800 [place] [address] Social History Tobacco Use Types Packs/Day Years [...] on filedocumented in this encounter Care Teams Dietetics Professor Relationship Specialty Start Date End Date Rainer Stuart MD [address] [place] [address] PCP - General Internal Medicine 10/12/21 Dinesh Park MD 115 [place] [address] Hospitalist 10/12/21 documented as of this encounter Additional Source Comments The information contained in this document represents components of the legal health record. It is not the complete legal health record.[facility]
== END 2024-11-13 10:26 | disposition home or self-care (01) ==
LOC: HO.US 10:25
PROVIDERS: Visit Provider Internal Medicine Nephrology
DX: R10.9 Unspecified abdominal pain (principal)
CPT/HCPCS: 76775

== ENCOUNTER → 2024-11-13 10:28 | Outpatient (BNV) | payer OTHER, SELFPAY | PROVIDERS: Visit Provider Radiology Diagnostic Radiology | DX: R10.9 Unspecified abdominal pain (principal) | CPT/HCPCS: 76775 ==

== ENCOUNTER 2024-11-18 15:16 | Outpatient (AMB) | payer OTHER, SELFPAY ==
--- NOTE | 2024-11-18 15:17 | HO.NEPHOV ---
Vital Signs 11/18/24 15:18 Height 5 ft 9 in Weight 221 lb BMI 32.6 BP 114/70 Blood Pressure Location Lt brachial Position Sitting Pulse 87 Pulse Source Pulse Oximeter Pulse Oximetry (%) 98 Oxygen Delivery Method Room Air Intake Visit Reasons: Lower back pain and urine blood-Conf Lumber Yard Worker Required: No Accompanied by: Self / Same As Patient Allergies No Known Allergies Allergy (Verified 11/18/24 15:18) HPI Comments Details: Balaji in follow up for hypertension and hematuria . He is 39 years of age and was found to be hypertensive and was initiated on medications. He has no history of any coronary artery disease, congestive heart failure, CVA, carotid stenosis, peripheral arterial disease. He has no history of smoking or dyslipidemia. He denies thyroid dysfunction, palpitation, chest pain, orthostatic symptoms, diarrhea, syncope, headache, visual disturbances. He has no history of any drug use. He does not take any excessive nonsteroidal anti-inflammatories. He has been having hematuria especially at the beginning of micturition. He has family H/O renal calculus. He had a urinalysis as well as urine culture and renal USS which all had been negative [facility] Surgical History History of surgery on arm History of tonsillectomy History of cholecystectomy Family History Father Hypertension Maternal Grandmother Hypertension Social History Alcohol intake: never Patient Tobacco Use Status: Never used Tobacco Review of Systems Const All systems reviewed & are unremarkable except as noted in HPI and below Physical Exam Vital Signs: Last Vital Signs Pulse 87 11/18/24 15:18 BP 114/70 11/18/24 15:18 Pulse Ox 98 11/18/24 15:18 Oxygen Delivery Method Room Air 11/18/24 15:18 BMI result Body Mass Index 32.6 Const General: comfortable and no acute distress Orientation/consciousness: patient oriented x3 HEENT Head: Yes normocephalic Mouth: Normal oral and palatal mucosa present Eyes EOM: EOMs intact bilaterally Neck Neck: Yes supple Resp Auscultation: clear to auscultation bilaterally Cardio Jugular venous distension: no JVD Rate: regular rate GI Palpation (GI): Soft to palpation Auscultation: normal bowel sounds General: Yes no CVA tenderness Back/Spine/Pelvis Back: no CVA tenderness Skin General skin exam: no rashes or lesions noted Neuro General: patient oriented x3 and moves all extremities Extrem General: Yes no pedal edema Results Reviewed Nephrology Results: Hgb, (14.0-18.0) 14.7 g/dl 10/01/23 WBC, (4.8-10.8) 6.0 X10*3/uL 10/01/23 Plt Count, (160-400) 242 X10*3/uL 10/01/23 Sodium, (135-145) 141 mmol/L 09/16/24 Potassium, (3.3-5.1) 4.2 mmol/L 09/16/24 Chloride, (96-108) 107 mmol/L 09/16/24 Carbon Dioxide, (22-29) 28 mmol/L 09/16/24 BUN, (9-16) 15 mg/dL 09/16/24 Creatinine, (0.5-1.4) 0.86 mg/dL 09/16/24 Calcium, (8.4-10.2) 9.9 mg/dL 09/16/24 Urine Protein, (Neg-Trace) Negative mg/dL 11/11/24 Renal US 11/13/24 Assessment & Plan Assessment & Plan (1) Hematuria: Code(s): R31.9 - Hematuria, unspecified Category: Medical Qualifiers: Hematuria type: gross Qualified Code(s): R31.0 - Gross hematuria (2) Renal artery stenosis: Code(s): I70.1 - Atherosclerosis of renal artery Category: Medical (3) Hypertension: Code(s): I10 - Essential (primary) hypertension Category: Medical Qualifiers: Hypertension type: unspecified Qualified Code(s): I10 - Essential (primary) hypertension Plan Balaji has hypertension. He has new issues of hematuria. He had hematuria mostly at the initiation of micturition. His urinalysis, urine culture and renal USS had been negative. I have ordered CT scan as well as Urology consult. He needs cystoscopy. Polyp in the urethral tract needs to be R/O. He was investigated to rule out secondary etiology for hypertension. Doppler of renal arteries showed less than 60% narrowing of her right renal artery. His renin, aldosterone were normal.His thyroid functions, cortisol and plasma metanephrines were normal. He needs to be on a low-sodium diet and needs to lose weight. He has no symptoms suggestive of obstructive sleep apnea. He has no history of drug use and does not take excessive nonsteroidal anti-inflammatories. He is tolerating valsartan and his blood pressure is at goal. He was encouraged to maintain good hydration. I intend to follow-up with a Doppler of his renal arteries in your time or before if he develops any indication. Follow-up lab work ordered and follow-up appointment given Orders: Orders CT abdomen pelvis w IV con Today R31.9 - Hematuria, unspecified Referrals Urology Referral R31.9 - Hematuria, unspecified Coding Level of Care Code Est Pt Level 4 (95580) Diagnoses Gross hematuria R31.0 Hematuria type: gross Renal artery stenosis I70.1 Hypertension I10 Hypertension type: unspecified
[2024-11-18 15:18] VITALS: BP 114/70; PULSE 87; O2SAT 98; BMI 32.6
--- OUTSIDE RECORDS SUMMARY | 2024-11-18 18:45 | XMS_ITS | Encounter Summary ---
Author Organization [facility] Address [address] [place] [address] [place] [address] Phone Care Team Providers Care Assembler Brazer Name Role Phone Dinesh Park MD Unavailable [phone] Rainer Stuart MD Primary Care Provider [phone] Encounter Details Date Type Department Care Team (Late st Contact Info) Description 02/12/2022 Procedure Pass ALEJANDRO LW PERIOP DEPT 800 [place] [address] Social History Tobacco Use Types Packs/Day Years [...] on filedocumented in this encounter Care Teams Assembler Brazer Relationship Specialty Start Date End Date Rainer Stuart MD [address] [place] [address] PCP - General Internal Medicine 10/12/21 Dinesh Park MD 115 [place] [address] Hospitalist 10/12/21 documented as of this encounter Additional Source Comments The information contained in this document represents components of the legal health record. It is not the complete legal health record.[facility]
--- OUTSIDE RECORDS SUMMARY | 2024-11-18 18:45 | XMS_ITS | Clinical Summary ---
Author Organization [employer] Address [address] [facility] 7t [place] [address] Care Team Providers Care Revenue Tax Specialist Name Role Phone Unavailable Primary Care Provider [...]
--- OUTSIDE RECORDS SUMMARY | 2024-11-18 18:46 | XMS_ITS | Encounter Summary ---
Author Organization [facility] Address [address] [place] [address] [place] [address] Phone Care Team Providers Care Senior Care Specialist Name Role Phone Dinesh Park MD Unavailable [phone] Rainer Stuart MD Primary Care Provider [phone] Encounter Details Date Type Department Care Team (Late st Contact Info) Description 12/20/2021 Procedure Pass ALEJANDRO LW PERIOP DEPT 800 [place] [address] Social History Tobacco Use Types Packs/Day Years [...] documented as of this encounter Care Teams Senior Care Specialist Relationship Specialty Start Date End Date Rainer Stuart MD [address] [place] [address] PCP - General Internal Medicine 10/12/21 Dinesh Park MD [address] [place] [address] Hospitalist 10/12/21 documented as of this encounter Additional Source Comments The information contained in this document represents components of the legal health record. It is not the complete legal health record.[facility]
--- OUTSIDE RECORDS SUMMARY | 2024-11-18 18:46 | XMS_ITS | Clinical Summary ---
Author Organization [facility] Address [address] [place] [address] Phone Care Team Providers Care Director Of Public Works Name Role Phone Dinesh Park MD Unavailable [phone] Rainer Stuart MD Primary Care Provider [phone] Allergies Active Allergy Reactions Criticality Noted Date [...] topic Medical Devices Not on file Insurance [employer] [address] [place], [place] [address] ALLANCE ACO [facility] [place] [employer] Member Subscriber Plan / Payer (Ef fective 2021-Present) Name:Balaji Valdez Relation to Subscriber:Self Name:Balaji Valdez Payer ID:[id number] Group ID:[id number] Type:Medicaid Address: [place] [id number] [facility] ACO [facility] [place] [employer] A[employer] Advance Directives For more information, please contact: [phone] (9AM - 5PM Katya/[facility], Saturday-Saturday) Documents on File Type Date Recorded Patient Retail Pos Specialist Expl anation Healthcare Proxy 02/16/2022 4:50 AM Care Teams Director Of Public Works Relationship Specialty Start Date End Date Rainer Stuart MD [address] [place] [address] PCP - General Internal Medicine 10/12/21 Dinesh Park MD [address] [place] [address] Hospitalist 10/12/21 Additional Source Comments The information contained in this document represents components of the legal health record. It is not the complete legal health record.[facility]
== END 2024-11-18 15:42 | disposition home or self-care (01) ==
LOC: HO.HKA 15:17
PROVIDERS: PCP Internal Medicine; Visit Provider Internal Medicine Nephrology
DX: R31.0 Gross hematuria (principal); I70.1 Atherosclerosis of renal artery; I10 Essential (primary) hypertension
CPT/HCPCS: 99214

== ENCOUNTER → 2024-11-18 15:16 | Outpatient (BNVA) | payer OTHER, SELFPAY | PROVIDERS: PCP Internal Medicine; Visit Provider Internal Medicine Nephrology | DX: I10 Essential (primary) hypertension (principal); R31.0 Gross hematuria; I70.1 Atherosclerosis of renal artery | CPT/HCPCS: 99212 ==

== ENCOUNTER 2024-12-31 14:26 | Outpatient (AMB) | payer OTHER, SELFPAY ==
--- NOTE | 2024-12-31 14:53 | MHC.OFFVIS ---
Intake Visit Reasons: Hematuria Intake Note: New patient is present for Hematuria Urology Med: None Antibiotic Allergy :None Blood Thinner: None Gastroenterology Nurse Practitioner Required: No Accompanied by: Self / Same As Patient Allergies No Known Allergies Allergy (Verified 12/31/24 14:56) HPI Comments Details: Balaji is a pleasant male. He is a patient of Dr. Henry. He is seen for the following urologic conditions - hematuria No blood on UA in office today Previous witnessed urine at completion of urination Renal ultrasound normal Recommend office cystoscopy [facility] Surgical History History of surgery on arm History of tonsillectomy History of cholecystectomy Family History Father Hypertension Maternal Grandmother Hypertension Social History Alcohol intake: never Patient Tobacco Use Status: Never used Tobacco Review of Systems Const Denies chills and Denies fever(s) Card Reports no additional complaints and Denies syncope Resp Denies cough GI Denies abdominal pain and Denies heartburn Reports as per HPI and Denies change in libido Neuro Denies syncope Psych Denies change in libido Endo Denies change in libido Physical Exam Const General: cooperative, healthy appearing, comfortable and no acute distress Orientation/consciousness: patient oriented x3 HEENT Face and sinus: Yes normal facial exam Mouth: moist mucous membranes Neck Neck: Yes normal visual inspection, Yes full ROM and Yes trachea midline Chest Chest palpation & inspection: normal inspection of the chest Resp Effort & Inspection: normal respiratory effort, able to speak in complete sentences and no respiratory distress GI Inspection: Yes normal to inspection Back/Spine/Pelvis Cervical Spine: normal cervical lordosis Thoracic/Lumbar Spine: thoracic and lumbar spine normal to inspection Skin General skin exam: no rashes or lesions noted Neuro General: patient oriented x3, gait normal, tone normal and moves all extremities Extrem General: Yes normal to inspection and Yes capillary refill normal Results AMB Urinalysis, Automated UA Leukoctes 0 Bony/uL Last Edit by SOMMER Landaverde on 12/31/24 15:04 UA Nitrite Negative Last Edit by SOMMER Landaverde on 12/31/24 15:04 UA Urobilinogen 0.2 mg/dL Last Edit by Yecenia Pelaez, RMA on 12/31/24 15:04 UA Protein 0 mg/dL Last Edit by Yecenia ePlaez, RMA on 12/31/24 15:04 UA pH 6.5 Last Edit by Yecenia Pelaez, RMA on 12/31/24 15:04 UA Blood 0 Ramana/uL Last Edit by Yecenia Pelaez, RMA on 12/31/24 15:04 UA Specific [place] 1.020 Last Edit by Yecenia Pelaez, RMA on 12/31/24 15:04 UA Ketone Negative Last Edit by Yeceniamita Pelaez, RMA on 12/31/24 15:04 UA Bilirubin 0 mg/dL Last Edit by Yecenia Pelaez, RMA on 12/31/24 15:04 UA Glucose 0 mg/dL Last Edit by Yecenia Pelaez, RMA on 12/31/24 15:04 Results Reviewed Results Reviewed: Laboratory Last Values Urine pH (Auto) 6.5 12/31/24 14:56 Specific [place] (Auto) 1.020 12/31/24 14:56 Urine Protein (Auto) 0 mg/dL 12/31/24 14:56 Glucose (UA)(Auto) 0 mg/dL 12/31/24 14:56 Urine Ketones (Auto) Negative 12/31/24 14:56 Urine Blood (Auto) 0 Ramana/uL 12/31/24 14:56 Urine Nitrite (Auto) Negative 12/31/24 14:56 Urine Bilirubin (Auto) 0 mg/dL 12/31/24 14:56 Urine Urobilinogen (Auto) 0.2 mg/dL 12/31/24 14:56 Leukocyte Esterase (Auto) 0 Bony/uL 12/31/24 14:56 Assessment & Plan Assessment & Plan (1) Hematuria: Code(s): R31.9 - Hematuria, unspecified Category: Medical Qualifiers: Hematuria type: gross Qualified Code(s): R31.0 - Gross hematuria Plan Office cystoscopy Orders: Orders AMB Urinalysis Automated Today Z13.9 - Encounter for screening, unspecified Patient Instructions: This note is constructed using voice recognition software. While every effort has been made to ensure accuracy real estate acquisition analyst errors may have been included. Imaging studies, laboratory and physical exam results were discussed and reviewed in detail. No major barriers to patient understanding were identified. An opportunity to ask questions regarding the treatment plan was provided. All questions were answered. The patient expressed understanding and agreement with the above treatment plan. The patient is aware they should contact our office by phone for worsening of their current condition or the appearance of new urologic symptoms. Compliance is encouraged with any medications and followup testing that is ordered. It is a privilege to participate in the urologic care of your patient. If you have any questions or concerns regarding treatment for the above conditions, or other urologic issues, please do not hesitate to contact me. The office telephone contact is [phone]. Sincerely, Dr Eric Negron MD, [facility] - Urology Compassionate Specialist Care for the Genitourinary System Coding Level of Care Code New Pt Level 3 (72870) Diagnoses Gross hematuria R31.0 Hematuria type: gross
--- OUTSIDE RECORDS SUMMARY | 2024-12-31 17:26 | XMS_ITS | Encounter Summary ---
Author Organization [facility] Address [address] [place] [address] [place] [phone] Phone Care Team Providers Care Splitting Machine Feeder Name Role Phone Dinesh Park MD Unavailable [phone] Rainer Stuart MD Primary Care Provider [phone] Encounter Details Date Type Department Care Team (Late st Contact Info) Description 02/12/2022 Procedure Pass ALEJANDRO LW PERIOP DEPT [address] [place] [address] Social History Tobacco Use Types Packs/Day Years [...] on filedocumented in this encounter Care Teams Splitting Machine Feeder Relationship Specialty Start Date End Date Rainer Stuart MD [address] [place] [id number] PCP - General Internal Medicine 10/12/21 Dinesh Park MD [address] [place] [address] Hospitalist 10/12/21 documented as of this encounter Additional Source Comments The information contained in this document represents components of the legal health record. It is not the complete legal health record.[facility]
--- OUTSIDE RECORDS SUMMARY | 2024-12-31 17:26 | XMS_ITS | Clinical Summary ---
Author Organization [address] Address [address] [place] [phone] Phone Care Team Providers Care Waste Management Specialist Name Role Phone Maya Henry MD Primary Care Provider [phone] Allergies Active Allergy Reactions Criticality Noted Date [...] Encounters Date Type Department Care Team Description 11/25/2024 2:45 PM EDT Office Visit Orthopedic Surgery [address] [phone] Ash Mirza DPM Metatarsalgia of both feet (Primary Dx); Pes planus of both feet 10/01/2024 2:00 PM EDT Consult Orthopedic Surgery [facility] [address] [address] Ash Mirza DPM Pes planus of both feet (Primary Dx); Metatarsalgia of both feet; Pain in both feet from Last 3 Months Immunizations Immunization Administration Dates Next Due Influenza trivalent, with [...] 10/01/2024 2:06 PM EDT Plan of Treatment Health Maintenance Due Date Last Done Comments Hepatitis B Vaccines (1 of 3 - 19+ 3-dose series) 2006 Pneumococcal Vaccine: Pediatrics (0 to 5 Years) and At-Risk Patients (6 to 49 Years) (1 of 2 - PCV) 2006 HPV Vaccines (1 - 3-dose SCDM series) 2014 Social Influencers of Health Screening 02/10/2022 Hypertension/CHF/CAD Annual BMP Blood Test 04/18/2023 04/18/2022 Depression Screening 03/04/2024 COVID-19 Vaccine ( season) 2024 07/20/2020, 06/29/2020 Influenza Vaccine (#1) 2024 5, 02/01/2014, 12/24/2013, Additional history exists Cholesterol Screening (Lipid Panel) 04/18/2027 04/18/2022 DTaP,Tdap,and Td Vaccines (3 - Td or Tdap) 10/10/2031 10/09/2021, 11/26/2008, 11/26/2008 RSV Immunization Adult Patients (1 - 1-dose 75+ series) 2062 HIV Screening Completed 09/19/2020 Hepatitis C Screening [...] * Annual BMP Blood Test (04/18/2022) Pathologist [facility] Annual BMP Blood Test abstracted [facility] Provider HEALTH MAINTENANCE Final Result * (ABNORMAL) Lipid panel (04/18/2022) [facility] LDL/HDL Ratio 5(A) 0 - 4 Triglycerides 151(A) 0 - 150 mg/dL Cholesterol 175 0 - 200 mg/dL HDL 35(A) >=40 mg/dL LDL Cholesterol 110(A) 0 - 100 mg/dL Blood Venous blood specimen / Unknown Result [facility] Provider LAB BLOOD ORDERABLES Juliann l Result * HIV Screening (09/19/2020) [facility] HIV Screening abstracted [facility] Provider HEALTH MAINTENANCE Final Result * Hepatitis C Screening (09/19/2020) [facility] Hepatitis C Screening abstracted [facility] Provider HEALTH MAINTENANCE Final Result from Last 3 Months or Most Recently Relevant to Health Maintenance Insurance MEDICAID - [place] [facility] Care Teams Waste Management Specialist Relationship Specialty Start Date End Date Maya Henry MD [address] [place] [address] [place] [address] PCP - General Internal Medicine 07/16/24
--- OUTSIDE RECORDS SUMMARY | 2024-12-31 17:26 | XMS_ITS | Clinical Summary ---
Author Organization [employer] Address [address] [facility] [address] [place] [address] Care Team Providers Care Commercial Glazier Name Role Phone Unavailable Primary Care Provider [...]
--- OUTSIDE RECORDS SUMMARY | 2024-12-31 17:26 | XMS_ITS | Encounter Summary ---
Author Organization [facility] Address [address] [place] [address] [place] [phone] Phone Care Team Providers Care Wood Coater Name Role Phone Dinesh Park MD Unavailable [phone] Rainer Stuart MD Primary Care Provider [phone] Encounter Details Date Type Department Care Team (Late st Contact Info) Description 12/20/2021 Procedure Pass ALEJANDRO LW PERIOP DEPT [address] [place] [address] Social History Tobacco Use Types Packs/Day Years [...] documented as of this encounter Care Teams Wood Coater Relationship Specialty Start Date End Date Rainer Stuart MD [address] [place] [address] PCP - General Internal Medicine 10/12/21 Dinesh Park MD [address] [place] [address] Hospitalist 10/12/21 documented as of this encounter Additional Source Comments The information contained in this document represents components of the legal health record. It is not the complete legal health record.[facility]
--- OUTSIDE RECORDS SUMMARY | 2024-12-31 17:26 | XMS_ITS | Clinical Summary ---
Author Organization [facility] Address [address] [place] [address] Phone Care Team Providers Care Hair Boiler Name Role Phone Dinesh Park MD Unavailable Rainer Stuart MD Primary Care Provider [phone] Allergies Active Allergy Reactions Criticality Noted Date [...] topic Medical Devices Not on file Insurance [employer] [address] [place], [place] [email or web address] [facility] [email or web address] Member Subscriber Plan / Payer (Ef fective 2021-Present) Name:Balaji Valdez Relation to Subscriber:Self Name:Balaji Valdez Payer ID:[id number] Group ID:[id number] Type:Medicaid Address: [place] [id number] [facility] [employer] Advance Directives For more information, please contact: [phone] (9AM - 5PM [facility], Saturday-Saturday) Documents on File Type Date Recorded Patient Refrigeration Operator Expl anation Healthcare Proxy 02/16/2022 4:50 AM Care Teams Hair Boiler Relationship Specialty Start Date End Date Rainer Stuart MD [address] [place] [phone] PCP - General Internal Medicine 10/12/21 Dinesh Park MD [address] [place] [address] Hospitalist 10/12/21 Additional Source Comments The information contained in this document represents components of the legal health record. It is not the complete legal health record.[facility]
== END 2024-12-31 15:13 | disposition home or self-care (01) ==
LOC: HO.HUSH 14:26
PROVIDERS: PCP Internal Medicine; Visit Provider Urology
DX: Z13.9 Encounter for screening, unspecified (principal); R31.0 Gross hematuria
CPT/HCPCS: 99203

== ENCOUNTER → 2024-12-31 14:26 | Outpatient (BNVA) | payer OTHER, SELFPAY | PROVIDERS: PCP Internal Medicine; Visit Provider Urology | DX: R31.0 Gross hematuria (principal) | CPT/HCPCS: 81003; 99202 ==

== ENCOUNTER 2025-01-06 07:23 | Emergency (ER) | payer OTHER, SELFPAY ==
--- NOTE | ~2025-01-06 | CT_ITS ---
EXAMINATION: CT ABDOMEN PELVIS WITHOUT IV CONTRAST HISTORY: r flank pain, concern for stone COMPARISON: Correlation is made with a renal ultrasound dated 11/13/2024. TECHNIQUE: CT scan of the abdomen and pelvis was performed without contrast using standard departmental protocol. Coronal and sagittal reformatted images were generated and reviewed. Oral contrast material was not administered per department protocol. This CT exam was performed with one or more of the following dose reduction techniques: automated exposure control, adjustment of the mA and/or kV according to patient size, use of iterative reconstruction technique. DLP: 623 mGy-cm FINDINGS: LOWER CHEST: The visualized lung bases are clear. There is no pleural effusion. CARDIOVASCULATURE: The heart is normal in size. There is no pericardial effusion. LIVER: The liver is normal in size and contour. The liver has an unremarkable unenhanced appearance. GALLBLADDER / BILE DUCTS: The gallbladder is surgically absent. There is no intra or extrahepatic biliary ductal dilatation. SPLEEN: The spleen is normal in size and has an unremarkable unenhanced appearance. PANCREAS: The pancreas has an unremarkable unenhanced appearance. ADRENAL GLANDS: Unremarkable. KIDNEYS/RETROPERITONEUM: No renal calculi are identified. There is moderate right hydroureteronephrosis to the level of a 3 mm calculus at the UVJ. No definite renal calculi are identified. LYMPH NODES: No retroperitoneal lymphadenopathy is identified in the abdomen or pelvis. VASCULATURE: The abdominal aorta is normal in caliber. MESENTERY/PERITONEUM: No free fluid. No masses. There is no free intraperitoneal gas. STOMACH: There is a small hiatal hernia. The remainder of the stomach is unremarkable. SMALL BOWEL: The small bowel is normal in caliber. COLON: The colon is collapsed. APPENDIX: Normal. URINARY BLADDER/PELVIC ORGANS: The urinary bladder is collapsed, limiting evaluation. The prostate is normal in size. BONES / SOFT TISSUES: No suspicious bony or soft tissue abnormalities. CT/CT abdomen pelvis wo IV con IMPRESSION: Moderate right hydroureteronephrosis to the level of a 3 mm UVJ calculus. Electronically signed by: Oral King MD 01/06/2025 08:05 AM [facility] [place]
--- NOTE | 2025-01-06 07:32 | ED.GENADULT ---
HPI - General Adult General Chief complaint: Abdominal Pain Stated complaint: RLQ PAIN,NAUSE,DIFF URINATING PER EMS Time Seen by Provider: 01/06/25 07:30 Source: patient and EMS Mode of arrival: EMS Limitations: no limitations History of Present Illness ED Provider: Tiff Farris PA-C HPI narrative: This is a 39yo male who presents to the ED with right flank pain. He has a history of renal artery stenosis and hypertension. Patient reports that he had an episode of 7/10 flank pain yesterday morning that resolved after 2 hours. Woke up this morning with 10/10 pain in his right flank. Has associated nausea. Reports pain in his bladder following urination. Denies history of kidney stones. Onset (ago): hour(s) Related Data Previous Rx's ?Medication ?Instructions ?Recorded valsartan 80 mg tablet 80 mg PO DAILY 90 days #90 tabs 05/06/24 naproxen 500 mg tablet 500 mg PO BID 7 days #14 tabs 01/06/25 prednisone 10 mg tablet 10 mg PO DAILY 4 days #4 tabs 01/06/25 tamsulosin 0.4 mg capsule 0.4 mg PO DAILY #7 caps 01/06/25 Allergies Allergy/AdvReac Type Severity Reaction Status Date / Time No Known Allergies Allergy Verified 01/06/25 07:36 Review of Systems Constitutional: Constitutional: Reports as per HPI Eyes: Eyes: Reports as per HPI ENT: Reports as per HPI Cardiovascular: Cardiovascular: Reports as per HPI Respiratory: Respiratory: Reports as per HPI Gastrointestinal: Gastrointestinal: Reports as per HPI Genitourinary: Genitourinary: Reports as per HPI Musculoskeletal: Musculoskeletal: Reports as per HPI Integumentary/Breasts: Skin/Breast: Reports as per HPI Neurologic: Reports as per HPI Psychiatric: Psychiatric: Reports as per HPI Endocrine: Endocrine: Reports as per HPI Hematologic/Lymphatic: Hematologic/Lymphatic: Reports as per HPI Allergic/Immunologic: Allergic/Immunologic: Reports as per HPI PMF Past Medical History Attestation statement: The following information was validated with the patient. Source: old records reviewed and nursing notes reviewed Surgical History History of surgery on arm History of tonsillectomy History of cholecystectomy Family History Family History Father Hypertension Maternal Grandmother Hypertension Social History Social History Alcohol intake: never Patient Tobacco Use Status: Never used Tobacco Advance Directives: No Advance Directives Information Provided: Yes Physical Exam ED Vital Signs: Vital Signs - 24 hr 01/06/25 07:33 01/06/25 08:53 01/06/25 09:18 Temperature 98 F 98 F Pulse Rate 66 63 63 Respiratory Rate 16 16 16 Blood Pressure 141/86 H 114/66 114/66 Pulse Oximetry 98 98 Oxygen Delivery Method Room Air Room Air 01/06/25 09:53 Temperature 98 F Pulse Rate 63 Respiratory Rate 16 Blood Pressure 114/66 Pulse Oximetry Oxygen Delivery Method BMI result Body Mass Index 32.5 Const General: alert, awake and ill appearing Nutritional Appearance: obese Orientation/consciousness: patient oriented x3 HENMT Head: Yes normal to inspection and Yes atraumatic Ears: hearing grossly normal bilaterally and external ears normal General nose exam: Normal external nose present, no nasal discharge noted and no epistaxis Face and sinus: Yes normal facial exam, No abrasion and No laceration Mouth: Normal oral and palatal mucosa present, no drooling and no muffled voice Eyes General: appearance normal, both eyes and all related structures Periorbital: periorbital findings normal Eyelids: Yes eyelids normal Conjunctivae: conjunctivae normal Pupils: Equal, round and reactive pupils present EOM: EOMs intact bilaterally Neck Neck: Yes normal visual inspection and Yes full ROM Resp Effort & Inspection: normal respiratory effort and able to speak in complete sentences GI Palpation (GI): Soft to palpation, not firm, nontender and no guarding Neuro General: patient oriented x3 Cranial nerves: Yes Equal, round and reactive pupils present Cognition (Neuro): normal cognition Extrem General: Yes normal to inspection, Yes full ROM and Yes capillary refill normal Psych Appearance: grossly normal Mental Status: mental status grossly normal Affect: normal affect Attitude: cooperative Thought process: Normal thought process present Thought content: Normal thought content present Insight: Good insight present (Psych) Medications Administered Discontinued Medications Generic Name Dose Route Start Last Admin Trade Name Freq PRN Reason Stop Dose Admin Sodium Chloride 1,000 mls @ 999 mls/hr 01/06/25 07:45 01/06/25 09:39 Ns IV 01/06/25 08:45 Infused .Q1H1M CARIN Infusion Ketorolac Tromethamine 15 mg 01/06/25 07:37 01/06/25 07:59 Ketorolac Tromethamine 15 Mg/Ml Vial IVPUSH 01/06/25 07:38 15 mg ONCE ONE Administration Morphine Sulfate 4 mg 01/06/25 07:40 01/06/25 07:58 Morphine Sulfate 4 Mg/Ml Cartridge IVPUSH 01/06/25 07:41 4 mg ONCE ONE Administration Protocol Ondansetron HCl 4 mg 01/06/25 07:40 01/06/25 07:59 Ondansetron Hcl 4 Mg/2 Ml Vial IVPUSH 01/06/25 07:41 4 mg ONCE ONE Administration Medical Decision Making Medical Decision Making [facility] Narrative: Patient is a 39 year old assigned male at with a history of HTN and renal artery stenosis presenting to the emergency department today with right sided flank pain. Patient's physical exam was as noted in the physical exam portion of this note. Patient was initially uncomfortable secondary to pain. Patient's blood work was unremarkable. Patient's urine showed no evidence of infection but did show blood. Patient's CT abd/pelvis showed moderate right sided hydroureternephrosis secondary to a 3mm stone in the right UVJ. I spoke with the Urologist early childhood education coordinator, Dr. Negron, who agreed with discharge home on PO prednisone, tamsulosin, and naproxen and outpatient follow up in the clinic. Patient received IV fluids, toradol, morphine, and zofran which, upon re-evaluation, he stated it helped his symptoms significantly. I explained my physical exam findings as well as all test results to the patient. I answered all questions asked by the patient. I stressed the importance of the patient taking his medication as directed (either prescribed or as the over the counter packaging recommends). I stressed the importance of the patient following up with his primary care provider and with the urologist. I stressed the importance of the patient returning to the emergency department immediately if his symptoms were to worsen or if he were to develop any dizziness, shortness of breath, difficulty breathing, chest pain, blurry vision, loss of vision, nausea, vomiting, abdominal pain, fever, chills, back pain, or any other complaints. Patient verbalized agreement and understanding with this treatment plan and discharge. Differential Diagnosis Differential Diagnoses: The differential diagnosis associated with the presentation includes Kidney stone Flank pain Admission/Observation Consideration of admission/observation: Escalation of care including admission/observation considered Patient would have been admitted to the hospital had his work up had any findings where hospital admission was appropriate and his clinical presentation warranted hospital admission. Consult Healthcare Provider Management of the patient was discussed with: Support Services Specialist (I spoke with Dr. Negron, the urologist early childhood education coordinator, as noted in the MDM Rationale portion of this note. ) Lab Data [facility] Lab Attestation statement: I reviewed the patient's lab results. My interpretation of these results are in the MDM Rationale portion of this note. 01/06/25 08:07 01/06/25 08:07 Labs: Lab Results 01/06/25 01/06/25 Range/Units 08:07 08:55 WBC 8.6 (4.8-10.8) X10*3/uL RBC 4.82 (4.60-5.80) X10*6/uL Hgb 14.2 (14.0-18.0) g/dl Hct 41.2 L (42.0-52.0) % MCV 85.5 (80.0-98.0) fL MCH 29.5 (27.0-33.0) pg MCHC 34.5 (31.0-36.0) g/dl RDW 12.5 (11.0-16.0) % Plt Count 245 (160-400) X10*3/uL MPV 10.0 (9.4-12.4) fL Immature Gran % (Auto) 0.2 (0.0-0.4) % Neut % (Auto) 73.2 H (45-73) % Lymph % (Auto) 16.5 L (20-40) % Hale % (Auto) 6.6 (2-11) % Eos % (Auto) 2.9 (0-4) % Baso % (Auto) 0.6 (0-2) % Lymph # (Auto) 1.4 (1.2-4.9) X10*3/uL Hale # (Auto) 0.6 (0.1-1.2) X10*3/uL Eos # (Auto) 0.3 (0.0-0.4) X10*3/uL Baso # (Auto) 0.1 (0.0-0.2) X10*3/uL Abs Immat Gran (auto) 0.02 (0.00-0.03) X10*3/uL Absolute Neuts (auto) 6.3 (2.0-8.3) x10*3/uL Absolute Nucleated RBC 0.000 (0.0-0.012) X10*3/uL Nucleated RBC % (auto) 0.0 (0.0-0.2) /100WBC Sodium 140 (135-145) mmol/L Potassium 3.3 D (3.3-5.1) mmol/L Chloride 106 (96-108) mmol/L Carbon Dioxide 24 (22-29) mmol/L Anion Gap 13 (12-20) BUN 16 (9-16) mg/dL Creatinine 0.97 (0.5-1.4) mg/dL Estim Creat Clear Calc 121.4 Estimated GFR > 60 Random Glucose 147 H (60-115) mg/dL Calcium 9.0 D (8.4-10.2) mg/dL Total Bilirubin 1.5 H (0.0-1.0) mg/dL AST 31 (5-37) U/L ALT 28 (0-40) U/L Alkaline Phosphatase 80 (39-117) U/L Total Protein 7.3 (6.5-8.0) g/dL Albumin 4.7 (3.5-5.0) g/dL Urine Color Dark Yellow Urine Appearance Clear Urine pH 6.5 (5.0-9.0) Ur Specific [place] 1.020 (1.005-1.025) Urine Protein Trace (Neg-Trace) mg/dL Urine Glucose (UA) Negative (Negative) mg/dL Urine Ketones 40 (Negative) mg/dL Urine Blood Moderate (2+) H (Negative) Urine Nitrite Negative (Negative) Ur Leukocyte Esterase Trace H (Negative) Urine RBC >20 H (0-2) /HPF Urine WBC 6-10 H (0-5) /HPF Ur Squamous Epith Cells 0-2 (0-2) /HPF Urine Bacteria None Seen (None Seen) Hyaline Casts 3-5 (0-2) /LPF Independent Interpretation I performed an independent interpretation of an: CT Scan Interpretation: My interpretation is in agreement with the radiologist's impression of this imaging study. Report Number: [id number]: Total DLP = 0.00 mGy-cm Reason for Exam: r flank pain, concern for stone EXAMINATION: CT ABDOMEN PELVIS WITHOUT IV CONTRAST HISTORY: r flank pain, concern for stone COMPARISON: Correlation is made with a renal ultrasound dated 11/13/2024. TECHNIQUE: CT scan of the abdomen and pelvis was performed without contrast using standard departmental protocol. Coronal and sagittal reformatted images were generated and reviewed. Oral contrast material was not administered per department protocol. This CT exam was performed with one or more of the following dose reduction techniques: automated exposure control, adjustment of the mA and/or kV according to patient size, use of iterative reconstruction technique. DLP: 623 mGy-cm FINDINGS: LOWER CHEST: The visualized lung bases are clear. There is no pleural effusion. CARDIOVASCULATURE: The heart is normal in size. There is no pericardial effusion. LIVER: The liver is normal in size and contour. The liver has an unremarkable unenhanced appearance. GALLBLADDER / BILE DUCTS: The gallbladder is surgically absent. There is no intra or extrahepatic biliary ductal dilatation. SPLEEN: The spleen is normal in size and has an unremarkable unenhanced appearance. PANCREAS: The pancreas has an unremarkable unenhanced appearance. ADRENAL GLANDS: Unremarkable. KIDNEYS/RETROPERITONEUM: No renal calculi are identified. There is moderate right hydroureteronephrosis to the level of a 3 mm calculus at the UVJ. No definite renal calculi are identified. LYMPH NODES: No retroperitoneal lymphadenopathy is identified in the abdomen or pelvis. VASCULATURE: The abdominal aorta is normal in caliber. MESENTERY/PERITONEUM: No free fluid. No masses. There is no free intraperitoneal gas. STOMACH: There is a small hiatal hernia. The remainder of the stomach is unremarkable. SMALL BOWEL: The small bowel is normal in caliber. COLON: The colon is collapsed. APPENDIX: Normal. URINARY BLADDER/PELVIC ORGANS: The urinary bladder is collapsed, limiting evaluation. The prostate is normal in size. BONES / SOFT TISSUES: No suspicious bony or soft tissue abnormalities. CT/CT abdomen pelvis wo IV con IMPRESSION: Moderate right hydroureteronephrosis to the level of a 3 mm UVJ calculus. Electronically signed by: Oral King MD 01/06/2025 08:05 AM [facility] Dictated By: Oral King MD Signed By: Electronically signed by Oral King MD 01/06/25 0805 Radiology Impression Discussion of test interpretation with radiology: I have reviewed the radiologist's reading. Prescription Management I considered prescription management with: Pain Medication (patient prescribed pain medication) and Other (patient prescribed prednisone + tamsulin per Dr. Negron's recommendation) Critical Care Time Critical Care Time Critical Care Time: Yes Total Critical Care Time: 38 Attestation: I spent 38 minutes of Critical Care Time with this patient. This does not include time spent on separately reported billable procedures. Discharge Plan Discharge Clinical Impression: Kidney stone Patient Disposition: Home, Self-Care Instructions: Kidney Stones (ED) Additional Instructions: Your CT scan showed evidence of a kidney stone in your right urinary tract. This will pass on it's own however, it is crucial you take your medication as prescribed and follow up with the urology team. IF you are prescribed home medications and/or you are taking over the counter medications at home - it is very important you continue to do so as prescribed / directed unless told otherwise. Follow up with your primary care provider. Return to the emergency department immediately if your symptoms worsen or if you develop any numbness, tingling, dizziness, shortness of breath, difficulty breathing, chest pain, blurry vision, loss of vision, nausea, vomiting, abdominal pain, fever, chills, back pain, or any other complaints. Please see the information below about our Patient Portal. If you are not yet enrolled in the [facility] Patient Portal, you will receive an enrollment email invitation following your visit to any [facility] care setting. You may also self-enroll in the Patient Portal by visiting our website: [email or web address] The following information is required to access the Patient Portal: - Your [facility] Medical Record Number - Your personal home email address (must match what is in your electronic medical record, Registration staff can assist with this) - Name - Date of Capabilities of the Patient Portal: - Message some providers - View upcoming appointments - Access your health summary, medical history, and visit history - View current conditions and allergies - View procedure and lab results - View your medications, including guidelines, side effects, and precautions - Complete pre-appointment questionnaires requested by your provider - Ready summary reports of your office visits and procedures To access the Patient Portal Mobile Sergei, follow these directions: - Search [employer] in the Sergei Store or Google Play Store - Download the Sergei - Search for [facility] - Enter your login/password Prescriptions: New prednisone 10 mg tablet 10 mg PO DAILY 4 Days Qty: 4 0RF tamsulosin 0.4 mg capsule 0.4 mg PO DAILY Qty: 7 0RF naproxen 500 mg tablet 500 mg PO BID 7 Days Qty: 14 0RF No Action valsartan 80 mg tablet 80 mg PO DAILY 90 Days Qty: 90 4RF Referrals: [facility] Urology Services [Provider Group, Urology] Referral Note: [facility] will be contacting you within 2 business days. During that call, they will schedule your follow up appointment. If you do not hear from them in 2 business days, please call their office. Maya Henry MD [Primary Care Provider, Internal Medicine] Stand Alone Forms: Work/School Release Interventions: ED Discharge Assessment Last Done: 01/06/25 09:53 Discharge Date/Time: 01/06/25 09:55 Print Language: Luxembourgish
[2025-01-06 07:33] VITALS: BP 141/86; PULSE 66; RESP 16; TEMP 36.6; O2SAT 98; BMI 32.5
[2025-01-06 08:11] LABS: MANUAL DIFF FLAG NO
[2025-01-06 08:12] LABS: Hematocrit 41.2 % (42.0-52.0); Hemoglobin 14.2 g/dl (14.0-18.0); Imm Gran Abs Auto 0.02 X10*3/uL (0.00-0.03); Imm Gran Pct Auto 0.2 % (0.0-0.4); Lymphocytes Absolute Auto 1.4 X10*3/uL (1.2-4.9); Mean Corpuscular HGB Conc 34.5 g/dl (31.0-36.0); Mean Corpuscular Hemoglobin 29.5 pg (27.0-33.0); Mean Corpuscular Volume 85.5 fL (80.0-98.0); NRBC Abs Auto 0.000 X10*3/uL (0.0-0.012); NRBC Pct Auto 0.0 /100WBC (0.0-0.2); Platelet Count 245 X10*3/uL (160-400); Red Blood Count 4.82 X10*6/uL (4.60-5.80); White Blood Count 8.6 X10*3/uL (4.8-10.8)
--- OUTSIDE RECORDS SUMMARY | 2025-01-06 08:29 | XMS_ITS | Encounter Summary ---
Author Organization [facility]erged With [facility] Address [address] [place] [address] [place] [address] Phone Care Team Providers Care Gas Scrubber Operator Name Role Phone Dinesh Park MD Unavailable [phone] Rainer Stuart MD Primary Care Provider [phone] Encounter Details Date Type Department Care Team (Late st Contact Info) Description 12/20/2021 Procedure Pass ALEJANDRO LW [facility] DEPT [address] [place] [address] Social History Tobacco Use Types Packs/Day Years [...] documented as of this encounter Care Teams Gas Scrubber Operator Relationship Specialty Start Date End Date Rainer Stuart MD [address] [place] [id number] PCP - General Internal Medicine 10/12/21 Dinesh Park MD [address] [place] [id number] Hospitalist 10/12/21 documented as of this encounter Additional Source Comments The information contained in this document represents components of the legal health record. It is not the complete legal health record.[facility]
--- OUTSIDE RECORDS SUMMARY | 2025-01-06 08:29 | XMS_ITS | Clinical Summary ---
Author Organization [employer] Address [address] [facility] [address] [place] [address] Care Team Providers Care Silviculture Teacher Name Role Phone Unavailable Primary Care Provider [...]
--- OUTSIDE RECORDS SUMMARY | 2025-01-06 08:29 | XMS_ITS | Encounter Summary ---
Author Organization [facility] Address [address] [place] [address] [place] [address] Phone Care Team Providers Care Sewing Machine Repairer Name Role Phone Dinesh Park MD Unavailable [phone] Rainer Stuart MD Primary Care Provider [phone] Encounter Details Date Type Department Care Team (Late st Contact Info) Description 02/12/2022 Procedure Pass ALEJANDRO [facility] PERI[facility] DEPT [address] [place] [address] Social History Tobacco Use Types Packs/Day Years [...] on filedocumented in this encounter Care Teams Sewing Machine Repairer Relationship Specialty Start Date End Date Rainer Stuart MD [address] [place] [phone] PCP - General Internal Medicine 10/12/21 Dinesh Park MD [address] [place] [address] Hospitalist 10/12/21 documented as of this encounter Additional Source Comments The information contained in this document represents components of the legal health record. It is not the complete legal health record.[facility]
--- OUTSIDE RECORDS SUMMARY | 2025-01-06 08:29 | XMS_ITS | Clinical Summary ---
Author Organization [address] Address [address] [place] [id number] Phone Care Team Providers Care Crystal Grinder Name Role Phone Maya Henry MD Primary Care Provider [phone] Allergies Active Allergy Reactions Criticality Noted Date [...] 2:45 PM EDT Office Visit Orthopedic Surgery - [address] [address] Ash Mirza, DPM Metatarsalgia of both feet (Primary Dx); Pes planus of both feet from Last 3 Months Immunizations [...] Depression Screening 03/04/2024 COVID-19 Vaccine (3 - season) 2024 07/20/2020, 06/29/2020 Influenza Vaccine (#1) [...] * Annual BMP Blood Test (04/18/2022) Pathologist [facility] Annual BMP Blood Test abstracted [facility] Provider HEALTH MAINTENANCE Final Result * (ABNORMAL) Lipid panel (04/18/2022) Pathologist [facility] LDL/HDL Ratio 5(A) 0 - 4 Triglycerides 151(A) 0 - 150 mg/dL Cholesterol 175 0 - 200 mg/dL HDL 35(A) >=40 mg/dL LDL Cholesterol 110(A) 0 - 100 mg/dL Blood Venous blood specimen / Unknown [facility] Provider LAB BLOOD ORDERABLES Juliann l Result * HIV Screening (09/19/2020) Pathologist [facility] HIV Screening abstracted [facility] Provider HEALTH MAINTENANCE Final Result * Hepatitis C Screening (09/19/2020) Pathologist [facility] Hepatitis C Screening abstracted [facility] Provider HEALTH MAINTENANCE Final Result from Last 3 Months or Most Recently Relevant to Health Maintenance Insurance MEDICAID - [place] [facility] Care Teams Crystal Grinder Relationship Specialty Start Date End Date Maya Henry MD [address] [place] [address] [place] [address] PCP - General Internal Medicine 07/16/24
--- OUTSIDE RECORDS SUMMARY | 2025-01-06 08:29 | XMS_ITS | Clinical Summary ---
Author Organization [facility] Address [address] [place] [phone] Phone Care Team Providers Care Technical Manager Chemical [employer] Name Role Phone Dinesh Park MD Unavailable [phone] Rainer Stuart MD Primary Care Provider [phone] Allergies Active Allergy Reactions Criticality Noted Date [...] topic Medical Devices Not on file Insurance [employer] [address] [place] [address] [facility] [employer] Member Subscriber Plan / Payer (Ef fective 2021-Present) Name:Balaji Valdez Relation to Subscriber:Self Name:Balaji Valdez Payer ID:[id number] Group ID:[id number] Type:Medicaid Address: [place] [id number] [facility] [employer] Advance Directives For more information, please contact: [phone] (9AM - 5PM [facility], Saturday-Saturday) Documents on File Type Date Recorded Patient Processing Operator Expl anation Healthcare Proxy 02/16/2022 4:50 AM Care Teams Technical Manager Chemical Plant Relationship Specialty Start Date End Date Rainer Stuart MD [address] [place] [id number] PCP - General Internal Medicine 10/12/21 Dinesh Park MD [address] [place] [address] Hospitalist 10/12/21 Additional Source Comments The information contained in this document represents components of the legal health record. It is not the complete legal health record.[facility]
[2025-01-06 08:53] VITALS: BP 114/66; PULSE 63; RESP 16; O2SAT 98
[2025-01-06 09:01] LABS: Appearance Urine Clear; Glucose Urine UA Negative (Negative); PH 6.5 (5.0-9.0); Specific Gravity - Urine 1.020 (1.005-1.025); UMIC TRIGGER UACC YES
[2025-01-06 09:05] LABS: UACC Culture Trigger YES
[2025-01-06 09:18] VITALS: BP 114/66; PULSE 63; RESP 16; TEMP 36.6
[2025-01-06 09:21] LABS: Alanine Aminotransferase 28 U/L (0-40); Albumin Level 4.7 g/dL (3.5-5.0); Alkaline Phosphatase 80 U/L (39-117); Anion Gap 13 (12-20); Aspartate Amino Transferase 31 U/L (5-37); Blood Urea Nitrogen 16 mg/dL (9-16); Calcium 9.0 mg/dL (8.4-10.2); Carbon Dioxide 24 mmol/L (22-29); Chloride 106 mmol/L (96-108); Creatinine Clr Calc Pharmacy 121.4; Estimated Glomerular Filt Rate > 60; Potassium 3.3 mmol/L (3.3-5.1); Sodium 140 mmol/L (135-145); Total Protein 7.3 g/dL (6.5-8.0)
[2025-01-06 09:53] VITALS: BP 114/66; PULSE 63; RESP 16; TEMP 36.6
== END 2025-01-06 09:55 | disposition home or self-care (01) ==
PROVIDERS: Physician Assistant Medical; Emergency Provider Emergency Medicine; PCP Internal Medicine
DX: N20.0 Calculus of kidney (principal); R10.32 Left lower quadrant pain; R11.0 Nausea
CPT/HCPCS: 36415; 74176; 80053; 81001; 81003; 85025; 87086; 96361; 96374; 96375; 99284; J1885; J2270; J2405

== ENCOUNTER → 2025-01-06 07:37 | Outpatient (BNV) | payer OTHER, SELFPAY | PROVIDERS: PCP Internal Medicine; Visit Provider Radiology Diagnostic Radiology | DX: N13.2 Hydronephrosis with renal and ureteral calculous obstruction (principal) | CPT/HCPCS: 74176 ==

== ENCOUNTER 2025-02-09 09:47 | Outpatient (AMB) | payer OTHER, SELFPAY ==
--- NOTE | 2025-02-09 10:21 | MHC.OFFVIS ---
Intake Visit Reasons: CYSTO SET UA Intake Note: patient is present for cystoscopy Urology Med: Tamsulosin Antibiotic Allergy :None Blood Thinner: None Imaging : Abd / Pelvis CT 01/06/25 Landscape Contractor Required: No Accompanied by: Self / Same As Patient Allergies No Known Allergies Allergy (Verified 02/09/25 10:21) HPI Comments Details: Balaji is a pleasant male. He is a patient of Dr. Henry. He is seen for the following urologic conditions - hematuria No blood on UA in office today Previous witnessed urine at completion of urination Renal ultrasound normal Here for check cystoscopy CT There is moderate right hydroureteronephrosis to the level of a 3 mm calculus at the UVJ. No definite renal calculi are identified. Three-month follow-up renal ultrasound [facility] Surgical History History of surgery on arm History of tonsillectomy History of cholecystectomy Family History Father Hypertension Maternal Grandmother Hypertension Social History Alcohol intake: never Patient Tobacco Use Status: Never used Tobacco Review of Systems Const Denies chills and Denies fever(s) Card Reports no additional complaints and Denies syncope Resp Denies cough GI Denies abdominal pain and Denies heartburn Reports as per HPI and Denies change in libido Neuro Denies syncope Psych Denies change in libido Endo Denies change in libido Physical Exam Const General: cooperative, healthy appearing, comfortable and no acute distress Orientation/consciousness: patient oriented x3 HEENT Face and sinus: Yes normal facial exam Mouth: moist mucous membranes Neck Neck: Yes normal visual inspection, Yes full ROM and Yes trachea midline Chest Chest palpation & inspection: normal inspection of the chest Resp Effort & Inspection: normal respiratory effort, able to speak in complete sentences and no respiratory distress GI Inspection: Yes normal to inspection Back/Spine/Pelvis Cervical Spine: normal cervical lordosis Thoracic/Lumbar Spine: thoracic and lumbar spine normal to inspection Skin General skin exam: no rashes or lesions noted Neuro General: patient oriented x3, gait normal, tone normal and moves all extremities Extrem General: Yes normal to inspection and Yes capillary refill normal Office Procedures Cystoscopy Consent Discussed risk and benefit or proposed procedure with the patient. Information consent for procedure given to the patient. Discussed technical aspects, risks, benefits and alternatives in full. Addressed all of the patient's questions and concerns regarding the procedure. The patient demonstrated knowledge and understanding. They wish to proceed with this procedure. Preparation The patient was prepped in the usual manner. A commuter train operator was present and in the room. Genitalia was prepped with betadine solution in a sterile manner. Lidocaine Jelly 2% was placed into the urethra and 16Fr flexible Olympus cystoscope was inserted into the meatus after adequate lubrication. [id number] DISPOSABLE SCOPE URO-G FLEXIBLE SCOPE Procedure code (CPT) selection complete Office Meds lidocaine HCl 2 % mucosal jelly in applicator Performing Provider: Eric Negron MD Performing Location: [facility] [place] [facility] Administered by: Halima Vidal RN on 02/09/25 10:32 Dose Route Admin Location Dispensed Lot Number Expiration Date [facility] [employer] 10 mL intra-urethral 10 mL nitrofurantoin monohydrate/macrocrystals 100 mg capsule Performing Provider: Eric Negron MD Performing Location: [facility] [place] Administered by: Halima Vidal RN on 02/09/25 10:32 Dose Route Admin Location Dispensed Lot Number Expiration Date [place] 100 mg PO 1 cap Results AMB Urinalysis, Automated UA Leukoctes 0 Bony/uL Last Edit by Alanna Duval [facility] on 02/09/25 10:35 UA Nitrite Negative Last Edit by Alanna Duval [facility] on 02/09/25 10:35 UA Urobilinogen 1 mg/dL Last Edit by Alanna Duval [facility] on 02/09/25 10:35 UA Protein 15 mg/dL Last Edit by Alanna Duval [facility] on 02/09/25 10:35 UA pH 6.0 Last Edit by Alanna Duval [facility] on 02/09/25 10:35 UA Blood 0 Ramana/uL Last Edit by Alanna Duval [facility] on 02/09/25 10:35 UA Specific [place] 1.025 Last Edit by Alanna Duval [facility] on 02/09/25 10:35 UA Ketone Negative Last Edit by Alanna Duval [facility] on 02/09/25 10:35 UA Bilirubin 1 mg/dL Last Edit by MAURICE Samuels on 02/09/25 10:35 UA Glucose 0 mg/dL Last Edit by MAURICE Samuels on 02/09/25 10:35 Results Reviewed Results Reviewed: Laboratory Last Values Urine pH (Auto) 6.0 02/09/25 10:33 Specific [place] (Auto) 1.025 02/09/25 10:33 Urine Protein (Auto) 15 mg/dL 02/09/25 10:33 Glucose (UA)(Auto) 0 mg/dL 02/09/25 10:33 Urine Ketones (Auto) Negative 02/09/25 10:33 Urine Blood (Auto) 0 Ramana/uL 02/09/25 10:33 Urine Nitrite (Auto) Negative 02/09/25 10:33 Urine Bilirubin (Auto) 1 mg/dL 02/09/25 10:33 Urine Urobilinogen (Auto) 1 mg/dL 02/09/25 10:33 Leukocyte Esterase (Auto) 0 Bony/uL 02/09/25 10:33 Assessment & Plan Assessment & Plan (1) Kidney stone: Code(s): N20.0 - Calculus of kidney Category: Medical Plan Three-month follow-up check imaging Orders: Orders AMB Cystoscopy 02/09/25 R31.0 - Gross hematuria AMB Urinalysis Automated 02/09/25 N13.8 - Other obstructive and reflux uropathy, N40.1 - Benign prostatic hyperplasia with lower urinary tract symptoms Patient Instructions: This note is constructed using voice recognition software. While every effort has been made to ensure accuracy seniour insight manager errors may have been included. Imaging studies, laboratory and physical exam results were discussed and reviewed in detail. No major barriers to patient understanding were identified. An opportunity to ask questions regarding the treatment plan was provided. All questions were answered. The patient expressed understanding and agreement with the above treatment plan. The patient is aware they should contact our office by phone for worsening of their current condition or the appearance of new urologic symptoms. Compliance is encouraged with any medications and followup testing that is ordered. It is a privilege to participate in the urologic care of your patient. If you have any questions or concerns regarding treatment for the above conditions, or other urologic issues, please do not hesitate to contact me. The office telephone contact is [phone]. Sincerely, Dr Eirc Negron MD, [facility] - Urology Compassionate Specialist Care for the Genitourinary System Coding Level of Care Code Est Pt Level 3 (34331) Diagnoses Kidney stone N20.0 CPT Codes Cystoscopy - CPT: 55151-[id number] ([id number])
== END 2025-02-09 15:14 | disposition home or self-care (01) ==
LOC: HO.HUSH 09:48
PROVIDERS: PCP Internal Medicine; Visit Provider Urology
DX: N40.1 Benign prostatic hyperplasia with lower urinary tract symptoms (principal); N13.8 Other obstructive and reflux uropathy; R31.0 Gross hematuria
CPT/HCPCS: 52000; 99213

== ENCOUNTER → 2025-02-09 09:47 | Outpatient (BNVA) | payer OTHER, SELFPAY | PROVIDERS: PCP Internal Medicine; Visit Provider Urology | DX: N20.0 Calculus of kidney (principal); N13.8 Other obstructive and reflux uropathy; R31.0 Gross hematuria; N40.0 Benign prostatic hyperplasia without lower urinary tract symptoms | CPT/HCPCS: 52000; 81003; 99212 ==